=== PATIENT | female | born 1930 | race Caucasian/White ===

== ENCOUNTER 2016-02-17 11:42 | Inpatient (IN) | payer MEDICARE, MEDICAID ==
[2016-02-17] MEDS ORDERED: Albuterol/Ipratropium Neb 3 ML NEB NEB ONE (11:49)
[2016-02-17] MEDS ORDERED: METHYLPREDNISOLONE 125 MG/2 ML VIAL IV ONE (11:49)
[2016-02-17 12:07] LABS: ALLEN'S TEST PASS; TCO2 31.9 MMOL/L (23-27)
[2016-02-17 12:08] LABS: ABG Draw Site Right Radial
--- NOTE | 2016-02-17 12:09 | EDPRACDOC ---
- General Information Information Source: Patient, [employer] Mode Of Arrival: Ambulance - History of Present Illness Symptoms Started: THIS AM HPI: EMS STATES THEY WERE CALLED OUT IN REFERENCE TO SHOB. STATES THE PATIENT WAS PLACED ON O2 BY THE NURSING FACILITY AND SAT WAS 94%. PT PRESENTS WITH MILD SHOB , AND AUDIBLE WHEEZING. PT DENIES ANY PAIN, NAUSEA, CHILLS OR FEVER. Symptoms: Reports: Cough Recently Treated Infections:: Denies: Otitis media, Pneumonia, URI Recent Medications: Reports: None Relevant History Of: Reports: COPD, Heart Failure (CHF) Shortness of Breath: Mild Cough Frequency: Intermittent Cough Description: Reports: Moist, Congested Rhinorrhea: Reports: Clear Ear Symptoms: Reports: None Associated Signs and Symptoms: Denies: Cough, Earache, Fever, Headache, Nasal Symptoms, Sore Throat, Nausea, Vomiting, Diarrhea, Myalgia, Rash, Pain with head movement, AMS, Other <Ashlyn Danielle W - Last Filed: 02/17/16 13:45> <Fiona Shannon - Last Filed: 02/17/16 14:48> - General Information Chief Complaint: Dyspnea/Resp distress Stated Complaint: TROUBLE BREATHING Time Seen by Provider: 02/17/16 11:44 Home Medications: Home Medications Carvedilol [Coreg] 6.25 mg PO BID 04/07/15 Citalopram Hydrobromide [Citalopram HBr] 20 mg PO DAILY 04/07/15 Dextran 70/Hypromellose/Pf [Artificial Tears Drops] 1 drop OU BID 04/07/15 Diltiazem HCl [Diltiazem 24Hr ER] 120 mg PO DAILY 04/07/15 Donepezil HCl 10 mg PO HS 04/07/15 Hydralazine HCl 10 mg PO TID 04/07/15 Isosorbide Dinitrate 10 mg PO TID 04/07/15 Levetiracetam 250 mg PO QHS 04/07/15 Memantine HCl 10 mg PO BID 04/07/15 Multivits, W-Fe,Other Min [Thera-M] 1 tab PO DAILY 04/07/15 Pantoprazole Sodium 40 mg PO DAILY 04/07/15 Spironolactone [Aldactone] 25 mg PO DAILY 04/15/15 Acetaminophen Ex Str Tablet [TYLENOL EXTRA STRENGTH Tablet] 1,000 mg PO Q4H PRN 02/17/16 Benzonatate [Tessalon Perle] 100 mg PO TID PRN 02/17/16 Diphenhydramine [Benadryl] 25 mg PO Q8H PRN 02/17/16 Furosemide [Lasix] 40 mg PO BID 02/17/16 Guaifenesin/D-Methorphan Hb [Cough Syrup Dm] 5 ml PO BID PRN 02/17/16 Lovastatin 10 mg PO HS 02/17/16 Petrolatum,White [Petroleum Jelly] 1 noreen TOP DAILY PRN 02/17/16 Allergies/Adverse Reactions: Allergies Allergy/AdvReac Type Severity Reaction Status Date / Time NSAIDS (Non-Steroidal AdvReac Intermediate See Verified 02/17/16 12:09 Anti-Inflamma Comments ED Past Medical History - History Reviewed Yes Nurses notes reviewed and agree except as marked - Patient Medical History Neurological History: Reports: Seizures, Dementia Cardiac History: Reports: Atrial Fibrillation, Hypertension, Congestive Heart Failure, Hypercholesterolemia, Pacemaker (For sick sinus syndrome.), Syncope. Denies: Coronary Artery Disease, Heart Attack, Cardiac Catheterization, CABG Respiratory History: Reports: COPD, Pneumonia. Denies: Asthma, Bronchitis, Asbestosis, Aspiration Pneumonia, Cough, Chronic Bronchitis, Emphysema, Pulmonary Embolism GI/ History: Reports: Renal Failure, Gastroesophageal Reflux, Diverticulosis. Denies: Renal Disease, Renal (Kidney) Cancer, Kidney (Renal Surgery), Urinary Tract Infection, Kidney Stones, Liver Failure, Ulcer, IBD, Pancreatitis Musculoskeletal History: Denies: Arthritis, Gout, Rheumatoid Arthritis, Osteoarthritis Psychological History: Reports: Anxiety. Denies: Depression, Substance Use Disorder Systemic History: Reports: Anemia. Denies: Diabetes, Hypothyroidism Surgical History: Reports: Other (Patient was unaware of any surgeries.). Denies: CABG, Hysterectomy, Angioplasty, Cardiac Catheterization, Hernia Surgery , Tonsillectomy, Tonsillectomy/Adnoidectomy - Family Medical History Reports: Cancer (MOTHER). Denies: Hypertension, Diabetes, Stroke, Cardiac Disorders - Social Medical History Smoking Status: Former smoker Social History: Denies: Substance Use Disorder <Ashlyn Danielle W - Last Filed: 02/17/16 13:45> EDM Review of Systems - Review of Systems ROS Negative Except as Marked: Yes All systems reviewed and were negative except as marked <Kobe Daniellea W - Last Filed: 02/17/16 13:45> - Physical Exam Constitutional: Alert (PT VERY HARD OF HEARING) Oriented to: Time, Person, Place Last recorded Vital Signs: Oxygen Pulse Oxygen Saturation O2 Device Oxygen Flow Rate Fraction of Inspired Oxygen ( FIO2) - HEENT Head: Normal ( normocephalic) Eye Exam: Normal (PERRL, EOMI, Sclera white) Oropharynx: Membranes Dry Nose: No Symptoms Reported (septum midline) Neck: Normal (FROM, trachea at midline) - Respiratory/Cardiovascular Respiratory: Rales, Rhonchi, Wheezes Cardiovascular: Normal (RRR without murmur, gallop or rub) - GI Auscultation: Normal (NABS) Palpation: Normal (Soft,No rebound or guarding, non distended) Tenderness: Non tender Grijalva's Sign: Negative Rectal Exam: Deferred - Musculoskeletal Back: Normal (Non-Tender) Extremities: Normal (Normal tone, Pulses 2+ No cyanosis or edema, FROM) - Integumentary Skin: Normal, Warm, Dry Lymphatics: Normal (no adenopathy) - Neurologic Memory Impaired: Normal Motor Function: Normal (Normal tone, Pulses 2+ No cyanosis or edema, FROM) Cranial Nerve: Normal (CN II-X11 intact sensation, strength 5/5) Cerebellar: Normal Mood Description: Normal Perception: Normal <ShashiAshlyn W - Last Filed: 02/17/16 13:45> - Physical Exam Last recorded Vital Signs: Last Vital Signs Temp 98.3 F 02/17/16 11:42 Pulse 62 02/17/16 12:40 Resp 20 02/17/16 12:40 BP 115/59 L 02/17/16 12:40 Pulse Ox 95 02/17/16 12:40 Oxygen Pulse Oxygen Saturation 95 O2 Device Nasal Cannula Oxygen Flow Rate 2 Fraction of Inspired Oxygen ( 92 FIO2) <Fiona Shannon - Last Filed: 02/17/16 14:48> - Differential Diagnosis Pneumonia, URI, Viral - Results 02/17/16 12:05 02/17/16 12:05 - EKG EKG #1 EKG Time: 12:06 -: Yes EKG interpreted by me Rate: bpm: 62 [place]: Normal Rhythm: Paced Block: None Hypertrophy: None ST: Normal <Ashlyn Danielle W - Last Filed: 02/17/16 13:45> - Results 02/17/16 12:05 02/17/16 12:05 WBC 10.1 xk/uL (3.8-10.8) 02/17/16 12:05 RBC 3.16 xM/uL (4.20-5.40) L 02/17/16 12:05 Hgb 10.0 g/dL (12.0-16.0) L D 02/17/16 12:05 Hct 29.8 % (36-47) L 02/17/16 12:05 MCV 94 fL (81-99) 02/17/16 12:05 MCH 31.5 pg (27-32) 02/17/16 12:05 MCHC 33.4 g/dl (33-36) 02/17/16 12:05 RDW 14.1 % (11.5-14.5) 02/17/16 12:05 Plt Count 184 xk/uL (130-400) 02/17/16 12:05 MPV 8.3 fL (7.4-10.4) 02/17/16 12:05 Neut % (Auto) 65.5 % (45-76) 02/17/16 12:05 Lymph % (Auto) 15.6 % (17-44) L 02/17/16 12:05 [place] % (Auto) 18.4 % (3-10) H 02/17/16 12:05 Eos % (Auto) 0.2 % (0-5) 02/17/16 12:05 Baso % (Auto) 0.3 % (0-2) 02/17/16 12:05 Absolute Neuts (auto) 6.57 xk/uL (1.7-8.2) 02/17/16 12:05 Absolute Lymphs (auto) 1.52 xk/uL (0.65-4.75) 02/17/16 12:05 Puncture Site Right radial 02/17/16 12:02 pH 7.460 pH UNITS (7.35-7.45) H 02/17/16 12:02 pCO2 43.0 mmHg (35-45) 02/17/16 12:02 pO2 78.0 mmHg (80-100) L 02/17/16 12:02 HCO3 30.6 MMOL/L (22-26) H 02/17/16 12:02 Total CO2 31.9 MMOL/L (23-27) H 02/17/16 12:02 Base Excess 6.0 (+/- 2) H 02/17/16 12:02 FiO2 % 2 lpm nc 02/17/16 12:02 Specimen Drawn By Roude 02/17/16 12:02 Sodium 145 mEq/L (137-146) 02/17/16 12:05 Potassium 3.6 mEq/L (3.5-5.1) 02/17/16 12:05 Chloride 101 mEq/L (98-107) 02/17/16 12:05 Carbon Dioxide 31 mMOL/L (22-33) 02/17/16 12:05 Anion Gap 17 mEq/L (8-16) H 02/17/16 12:05 BUN 40 MG/DL (7-17) H 02/17/16 12:05 Creatinine 1.40 MG/DL (0.52-1.04) H 02/17/16 12:05 Estimated GFR (MDRD) 36 mL/min (>=60) L 02/17/16 12:05 Glucose 98 MG/DL (70-99) 02/17/16 12:05 Calculated Osmolality 289 MOs/Kg (270-290) 02/17/16 12:05 Lactic Acid 1.2 mEq/L (0.7-2.1) 02/17/16 13:46 Calcium 9.5 MG/DL (8.4-10.2) 02/17/16 12:05 Total Bilirubin 0.6 MG/DL (0.2-1.3) 02/17/16 12:05 AST 28 IU/L (14-36) 02/17/16 12:05 ALT 30 IU/L (9-52) 02/17/16 12:05 Alkaline Phosphatase 79 IU/L (55-165) 02/17/16 12:05 Creatine Kinase 112 IU/L (30-134) 02/17/16 12:05 Troponin I 0.02 ng/mL (<.04) 02/17/16 12:05 Qdi-K-Yesehwcbfjc Pept 996 pg/mL (0-1800) 02/17/16 12:05 Total Protein 7.7 G/DL (6.3-8.2) 02/17/16 12:05 Albumin 4.4 G/DL (3.5-5.0) 02/17/16 12:05 Urine Color Yellow 02/17/16 13:15 Urine Clarity Sl hzy 02/17/16 13:15 Urine pH 6.0 (5.0-8.0) 02/17/16 13:15 Ur Specific [place] 1.010 (1.003-1.035) 02/17/16 13:15 Urine Protein Neg (NEG/TRACE) 02/17/16 13:15 Urine Glucose (UA) Neg (NEGATIVE) 02/17/16 13:15 Urine Ketones Neg (NEGATIVE) 02/17/16 13:15 Urine Occult Blood Neg (NEG/TRACE) 02/17/16 13:15 Urine Nitrite Neg (NEGATIVE) 02/17/16 13:15 Urine Bilirubin Neg (NEGATIVE) 02/17/16 13:15 Urine Urobilinogen <2.0 MG/DL (0-1) 02/17/16 13:15 Ur Leukocyte Esterase Neg (NEGATIVE) 02/17/16 13:15 Urine RBC 2-5 (0-5) 02/17/16 13:15 Urine WBC 0-2 (0-5) 02/17/16 13:15 Ur Epithelial Cells Occ 02/17/16 13:15 Hyaline Casts 5-10 (0-2) H 02/17/16 13:15 Urine Mucus Occ (NEG/OCC) 02/17/16 13:15 Lab Results 02/17/16 02/17/16 02/17/16 13:46 13:15 12:05 WBC 10.1 RBC 3.16 L Hgb 10.0 L D Hct 29.8 L MCV 94 MCH 31.5 MCHC 33.4 RDW 14.1 Plt Count 184 MPV 8.3 Neut % (Auto) 65.5 Lymph % (Auto) 15.6 L [place] % (Auto) 18.4 H Eos % (Auto) 0.2 Baso % (Auto) 0.3 Absolute Neuts (auto) 6.57 Absolute Lymphs (auto) 1.52 Puncture Site pH pCO2 pO2 HCO3 Total CO2 Base Excess FiO2 % Specimen Drawn By Sodium Potassium Chloride Carbon Dioxide Anion Gap BUN Creatinine Estimated GFR (MDRD) Glucose Calculated Osmolality Lactic Acid 1.2 Calcium Total Bilirubin AST ALT Alkaline Phosphatase Creatine Kinase Troponin I Sab-P-Dqzogpndqjb Pept Total Protein Albumin Urine Color Yellow Urine Clarity Sl hzy Urine pH 6.0 Ur Specific [place] 1.010 Urine Protein Neg Urine Glucose (UA) Neg Urine Ketones Neg Urine Occult Blood Neg Urine Nitrite Neg Urine Bilirubin Neg Urine Urobilinogen <2.0 Ur Leukocyte Esterase Neg Urine RBC 2-5 Urine WBC 0-2 Ur Epithelial Cells Occ Hyaline Casts 5-10 H Urine Mucus Occ 02/17/16 02/17/16 12:05 12:02 WBC RBC Hgb Hct MCV MCH MCHC RDW Plt Count MPV Neut % (Auto) Lymph % (Auto) [place] % (Auto) Eos % (Auto) Baso % (Auto) Absolute Neuts (auto) Absolute Lymphs (auto) Puncture Site Right radial pH 7.460 H pCO2 43.0 pO2 78.0 L HCO3 30.6 H Total CO2 31.9 H Base Excess 6.0 H FiO2 % 2 lpm nc Specimen Drawn By Roude Sodium 145 Potassium 3.6 Chloride 101 Carbon Dioxide 31 Anion Gap 17 H BUN 40 H Creatinine 1.40 H Estimated GFR (MDRD) 36 L Glucose 98 Calculated Osmolality 289 Lactic Acid Calcium 9.5 Total Bilirubin 0.6 AST 28 ALT 30 Alkaline Phosphatase 79 Creatine Kinase 112 Troponin I 0.02 Zqn-Y-Dzazjvqeoav Pept 996 Total Protein 7.7 Albumin 4.4 Urine Color Urine Clarity Urine pH Ur Specific [place] Urine Protein Urine Glucose (UA) Urine Ketones Urine Occult Blood Urine Nitrite Urine Bilirubin Urine Urobilinogen Ur Leukocyte Esterase Urine RBC Urine WBC Ur Epithelial Cells Hyaline Casts Urine Mucus - Additional Information PT'S O2 SAT 85 ON RA. THE ABG WAS INITIALLY DONE ON OXYGEN, WHICH PT IS NOT NORMALLY ON. <Fiona Shannon - Last Filed: 02/17/16 14:48> Decision Time to Discharge: 13:45 - Departure Disposition: Home Education/Counseling Given To: Patient Education/Counseling Given Regarding: Diagnosis, Treatment, Prognosis, Follow Up <Ashlyn Danielle - Last Filed: 02/17/16 13:45> - Departure Disposition: Admit IP To This Hospital Decision to Admit Time: 14:48 Decision to admit date: 02/17/16 Decision to admit: from ED - Physician Consulted Hospitalist Provider Called: Lacy Irby <Fiona Shannon - Last Filed: 02/17/16 14:48> - Departure Condition: Stable Final Diagnosis: Acute respiratory failure with hypoxia, LLL pneumonia Instructions: Methylprednisolone (By mouth), Levofloxacin (By mouth), Ipratropium/Albuterol (By breathing), Pneumonia (ED) Referrals: Eloina Perla MD [Primary Care Provider] - One Week
[2016-02-17 12:38] LABS: AUTOMATED BASOPHIL 0.3 % (0-2); AUTOMATED EOSINOPHIL 0.2 % (0-5); AUTOMATED LYMPH 15.6 % (17-44); AUTOMATED MONOCYTE 18.4 % (3-10); AUTOMATED NEUTROPHIL 65.5 % (45-76); MPV 8.3 fL (7.4-10.4)
[2016-02-17 12:48] LABS: BLOOD UREA NITROGEN 40 MG/DL (7-17); CALCIUM 9.5 MG/DL (8.4-10.2); CALCULATED OSMOLALITY 289 MOs/Kg (270-290); CHLORIDE 101 mEq/L (98-107); CPK TOTAL WITH POSSIBLE MB 112 IU/L (30-134); GLUCOSE 98 MG/DL (70-99); SODIUM LEVEL 145 mEq/L (137-146); TOTAL PROTEIN 7.7 G/DL (6.3-8.2)
--- NOTE | 2016-02-17 13:38 | DIRPT ---
CLINICAL DATA: Wheezing, short of breath EXAM: CHEST 2 VIEW COMPARISON: 02/12/2016 FINDINGS: LEFT-sided pacemaker overlies stable enlarged cardiac silhouette. There is increased opacity over the LEFT hemidiaphragm. There is an increased density over the lower thoracic spine on lateral projection somewhat linear pattern. Findings suggestive of atelectasis versus infiltrate. No significant pleural fluid. IMPRESSION: New LEFT lower lobe opacity representing atelectasis versus infiltrate. Electronically Signed By: Mesfin Hdz M.D. On: 02/17/2016 13:35
[2016-02-17] MEDS ORDERED: AZITHROMYCIN 250 MG TAB PO ONE (13:44)
[2016-02-17] MEDS ORDERED: LEVOFLOXACIN 750 MG TAB PO ONE (13:45)
[2016-02-17 14:04] LABS: LEUKOCYTES/URINE NEG (NEGATIVE); NITRITE/URINE NEG (NEGATIVE); URINE OCCULT BLOOD NEG (NEG/TRACE); WBC/URINE 0-2 (0-5)
[2016-02-17] MEDS ORDERED: ACETAMINOPHEN 325 MG/TAB TABLET PO PRN (15:05)
[2016-02-17] MEDS ORDERED: TUSSIONEX 5 ML ORAL SYRINGE PO PRN (15:05)
[2016-02-17] MEDS ORDERED: BENZONATATE 100 MG PERLES PO PRN (15:05)
[2016-02-17] MEDS ORDERED: MAGNESIUM HYDROXIDE 30 ML BOTTLE PO PRN (15:05)
[2016-02-17] MEDS ORDERED: SODIUM CHLORIDE 0.9% 3 ML FLUSH FLUSH PRN (15:05)
[2016-02-17] MEDS ORDERED: Aluminum;Magnesium;Simethicone 30 ML UDC PO PRN (15:05)
[2016-02-17] MEDS ORDERED: ONDANSETRON HCL 4 MG/2 ML VIAL IV PRN (15:05)
[2016-02-17] MEDS ORDERED: ALBUTEROL 0.083% 3 ML NEB NEB PRN (15:05)
[2016-02-17 15:07] LABS: ABG Draw Site Right Radial; ALLEN'S TEST PASS; BEb 6.4 (+/- 2); TCO2 32.7 MMOL/L (23-27)
--- NOTE | 2016-02-17 15:11 | HISTPHYS ---
- Chief Complaint [facility]. - History of Present Illness Pt arrived via EMS from [place] [facility] with report of SHOB, decrease sats at 74 % RA and HR-199. EMS reported upon arrival sats-96% O2 at 2lpm and HR 64. Pt with audible wheezing given Albuterol neb x2. No report of fever. EMS STATES THEY WERE CALLED OUT IN REFERENCE TO SHOB. STATES THE PATIENT WAS PLACED ON O2 BY THE NURSING FACILITY AND SAT WAS 94%. PT PRESENTS WITH MILD SHOB , AND AUDIBLE WHEEZING. PT DENIES ANY PAIN, NAUSEA, CHILLS OR FEVER. Symptoms: Reports: Cough Recently Treated Infections:: Denies: Otitis media, Pneumonia, URI Recent Medications: Reports: None Relevant History Of: Reports: COPD, Heart Failure (CHF) Shortness of Breath: Mild Cough Frequency: Intermittent Cough Description: Reports: Moist, Congested Rhinorrhea: Reports: Clear Ear Symptoms: Reports: None Associated Signs and Symptoms: Denies: Cough, Earache, Fever, Headache, Nasal Symptoms, Sore Throat, Nausea, Vomiting, Diarrhea, Myalgia, Rash, Pain with head movement, AMS, Other Patient is extremely poor historian and very hard of hearing. I am unable to obtain any useful history from her. The entirety of the history is obtained from discussion with the ED physician and the medical record. - Medical History Cardiac History: Reports: Atrial Fibrillation, Hypertension, Congestive Heart Failure, Hypercholesterolemia, Pacemaker (For sick sinus syndrome.), Syncope. Denies: Coronary Artery Disease, Heart Attack, Cardiac Catheterization, CABG Respiratory History: Reports: COPD, Pneumonia. Denies: Asthma, Bronchitis, Asbestosis, Aspiration Pneumonia, Cough, Chronic Bronchitis, Emphysema, Pulmonary Embolism GI/ History: Reports: Renal Failure, Gastroesophageal Reflux, Diverticulosis. Denies: Renal Disease, Renal (Kidney) Cancer, Kidney (Renal Surgery), Urinary Tract Infection, Kidney Stones, Liver Failure, Ulcer, IBD, Pancreatitis Musculoskeletal History: Denies: Arthritis, Gout, Rheumatoid Arthritis, Osteoarthritis Systemic History: Reports: Anemia. Denies: Diabetes, Hypothyroidism Neurological History: Reports: Seizures, Dementia Psychological History: Reports: Anxiety. Denies: Depression, Substance Use Disorder - Surgical History Reports: Other (Patient was unaware of any surgeries.). Denies: CABG, Hysterectomy, Angioplasty, Cardiac Catheterization, Hernia Surgery, Tonsillectomy, Tonsillectomy/Adnoidectomy - Medictions/Allergies Allergies NSAIDS (Non-Steroidal Anti-Inflamma Adverse Reaction (Intermediate, Verified 12:09) See Comments Renal failure Current Medication List: Reviewed Home Medications Carvedilol [Coreg] 6.25 mg PO BID 04/07/15 Citalopram Hydrobromide [Citalopram HBr] 20 mg PO DAILY 04/07/15 Dextran 70/Hypromellose/Pf [Artificial Tears Drops] 1 drop OU BID 04/07/15 Diltiazem HCl [Diltiazem 24Hr ER] 120 mg PO DAILY 04/07/15 Donepezil HCl 10 mg PO HS 04/07/15 Hydralazine HCl 10 mg PO TID 04/07/15 Isosorbide Dinitrate 10 mg PO TID 04/07/15 Levetiracetam 250 mg PO QHS 04/07/15 Memantine HCl 10 mg PO BID 04/07/15 Multivits,Th W-Fe,Other Min [Thera-M] 1 tab PO DAILY 04/07/15 Pantoprazole Sodium 40 mg PO DAILY 04/07/15 Spironolactone [Aldactone] 25 mg PO DAILY 04/15/15 Acetaminophen Ex Str Tablet [TYLENOL EXTRA STRENGTH Tablet] 1,000 mg PO Q4H PRN 02/17/16 Benzonatate [Tessalon Perle] 100 mg PO TID PRN 02/17/16 Diphenhydramine [Benadryl] 25 mg PO Q8H PRN 02/17/16 Furosemide [Lasix] 40 mg PO BID 02/17/16 Guaifenesin/D-Methorphan Hb [Cough Syrup Dm] 5 ml PO BID PRN 02/17/16 Lovastatin 10 mg PO HS 02/17/16 Petrolatum,White [Petroleum Jelly] 1 noreen TOP DAILY PRN 02/17/16 - Family History Reports: Cancer (MOTHER). Denies: Hypertension, Diabetes, Stroke, Cardiac Disorders - Social History Travel Outside of [place] in the Last 3 Months?: No Lives: in Assisted Living Smoking Status: Former smoker Social History: Denies: Amphetamine Use, Substance Use Disorder - Review of Systems Yes Review of systems cannot be obtained due to the patient's medical condition - Physical Exam Vital Signs: Initial Vitals Temperature 98.3 F 02/17/16 11:42 Pulse Rate 69 02/17/16 11:42 Respiratory Rate 22 02/17/16 11:42 Blood Pressure 128/60 02/17/16 11:42 Pulse Oxygen Saturation 92 02/17/16 11:42 Constitutional: Alert, Confused, Well nourished. negative: Well appearing Oriented to: Person, Place - HEENT Head: Normal (normocephalic, atraumatic.), Other (No cervical lymphadenopathy. No supraclavicular lymphadenopathy. Neck: No palpable mass, supple , trachea midline.) Eye: Normal (pupils equal, reactive to light, and round; EOMI, Sclera white) Oropharynx: Normal (Pharynx: Moist without exudate,Gums-no swelling, No oropharyngeal lesions or erythema, Mucous membranes are dry.) Nose: No Symptoms Reported (septum midline, Nares patent, without discharge or bleeding.) Respiratory: Diminished, Rhonchi, Wheezes. negative: Rales Cardiovascular: Normal (RRR , Normal S1, S2. No murmurs, rubs, or gallops. PMI non-displaced. Carotids: no carotid bruits. No bradycardia or tachycardia. DP pulses 2+ bilaterally.) - GI Auscultation: Normal (normal active sounds) Palpation: Normal (Soft,non distended,nontender. No hepatosplenomegaly.) Tenderness: Non tender (No rebound or guarding) Grijalva's Sign: Negative - Musculoskeletal Back: Normal (Non-Tender) Extremities: Normal (Normal tone, DP pulses 2+ bilaterally, No cyanosis or edema bilaterally, FROM bilaterally.) - Integumentary Skin: Normal (Clean, dry, and intact. No rashes. No lesions.) Lymphatics: Normal (No cervical lymphadenopathy. No supraclavicular lymphadenopathy.) - Neurologic Memory Impaired: Unable to Test Motor Function: Unable to Test Cranial Nerve: Unable to Test Cerebellar: Unable to Test Mood Description: Normal, Calm - Focused CV Perfusion Exam Vital Signs: Last Vital Signs Temp 98.3 F 02/17/16 11:42 Pulse 85 02/17/16 14:40 Resp 18 02/17/16 14:40 BP 121/59 L 02/17/16 14:40 Pulse Ox 85 L 02/17/16 14:40 - Lab Results Laboratory Results - last 24 hr 02/17/16 02/17/16 02/17/16 12:02 12:05 12:05 WBC 10.1 RBC 3.16 L Hgb 10.0 L D Hct 29.8 L MCV 94 MCH 31.5 MCHC 33.4 RDW 14.1 Plt Count 184 MPV 8.3 Neut % (Auto) 65.5 Lymph % (Auto) 15.6 L [place] % (Auto) 18.4 H Eos % (Auto) 0.2 Baso % (Auto) 0.3 Absolute Neuts (auto) 6.57 Absolute Lymphs (auto) 1.52 Puncture Site Right radial pH 7.460 H pCO2 43.0 pO2 78.0 L HCO3 30.6 H Total CO2 31.9 H Base Excess 6.0 H FiO2 % 2 lpm nc Specimen Drawn By Roude Sodium 145 Potassium 3.6 Chloride 101 Carbon Dioxide 31 Anion Gap 17 H BUN 40 H Creatinine 1.40 H Estimated GFR (MDRD) 36 L Glucose 98 Calculated Osmolality 289 Lactic Acid Calcium 9.5 Total Bilirubin 0.6 AST 28 ALT 30 Alkaline Phosphatase 79 Creatine Kinase 112 Troponin I 0.02 Lrm-M-Wjfclgqyets Pept 996 Total Protein 7.7 Albumin 4.4 Urine Color Urine Clarity Urine pH Ur Specific [place] Urine Protein Urine Glucose (UA) Urine Ketones Urine Occult Blood Urine Nitrite Urine Bilirubin Urine Urobilinogen Ur Leukocyte Esterase Urine RBC Urine WBC Ur Epithelial Cells Hyaline Casts Urine Mucus 02/17/16 02/17/16 02/17/16 13:15 13:46 15:00 WBC RBC Hgb Hct MCV MCH MCHC RDW Plt Count MPV Neut % (Auto) Lymph % (Auto) [place] % (Auto) Eos % (Auto) Baso % (Auto) Absolute Neuts (auto) Absolute Lymphs (auto) Puncture Site Right radial pH 7.450 pCO2 45.0 pO2 52.0 L HCO3 31.3 H Total CO2 32.7 H Base Excess 6.4 H FiO2 % 21% Specimen Drawn By Roude Sodium Potassium Chloride Carbon Dioxide Anion Gap BUN Creatinine Estimated GFR (MDRD) Glucose Calculated Osmolality Lactic Acid 1.2 Calcium Total Bilirubin AST ALT Alkaline Phosphatase Creatine Kinase Troponin I [id number]-B-Xzrwnfdcvfx Pept Total Protein Albumin Urine Color Yellow Urine Clarity Sl hzy Urine pH 6.0 Ur Specific [place] 1.010 Urine Protein Neg Urine Glucose (UA) Neg Urine Ketones Neg Urine Occult Blood Neg Urine Nitrite Neg Urine Bilirubin Neg Urine Urobilinogen <2.0 Ur Leukocyte Esterase Neg Urine RBC 2-5 Urine WBC 0-2 Ur Epithelial Cells Occ Hyaline Casts 5-10 H Urine Mucus Occ - Diagnostic Findings CHEST 2 VIEW COMPARISON: 02/12/2016 FINDINGS: LEFT-sided pacemaker overlies stable enlarged cardiac silhouette. There is increased opacity over the LEFT hemidiaphragm. There is an increased density over the lower thoracic spine on lateral projection somewhat linear pattern. Findings suggestive of atelectasis versus infiltrate. No significant pleural fluid. IMPRESSION: New LEFT lower lobe opacity representing atelectasis versus infiltrate. Electronically Signed By: Mesfin Hdz M.D. On: 02/17/2016 13:35 EKG personally viewed by me reveals an AV dual paced rhythm consistent with dual pacemaker. - Assessment (1) Acute respiratory failure with hypoxia J96.01 - ACUTE RESPIRATORY FAILURE WITH HYPOXIA Acute Present on Admission: Yes Patient does not use any oxygen at the assisted living facility she was found have a PO2 of 74 by the staff oxygen was started. By the time EMS arrived her sats were at 92% level she was given nebulizer treatment due to wheezing and seems to have improved significantly. (2) LLL pneumonia J18.1 - LOBAR PNEUMONIA, UNSPECIFIED ORGANISM Acute Present on Admission: Yes Qualifiers: Pneumonia type: due to unspecified organism Qualified Code(s): J18.1 - Lobar pneumonia, unspecified organism Patient will be treated for community-acquired left lower lobe pneumonia with Rocephin and azithromycin. Will monitor her oxygenation status very closely. (3) Hypoxia R09.02 - HYPOXEMIA Acute Present on Admission: Yes Continue oxygen supplementation. Check ambulating O2 sats prior to discharge. (4) Chronic renal insufficiency, stage III (moderate) N18.3 - CHRONIC KIDNEY DISEASE, STAGE 3 (MODERATE) Chronic Present on Admission: Yes Continue to monitor renal status. Her creatinine of 1.4 is better than her usual baseline of approximately 2.0 (5) Anemia, chronic disease D63.8 - ANEMIA IN OTHER CHRONIC DISEASES CLASSIFIED ELSEWHERE Chronic Patient likely with anemia due to chronic disease as well as due to renal insufficiency. Continue to monitor (6) Pacemaker Z95.0 - PRESENCE OF CARDIAC PACEMAKER Chronic Present on Admission: Yes Continue dual chamber pacing. - Plan Admit treat pneumonia provide oxygen supplementation. Case Care Discussed with: Patient, Nursing Staff Total Time: 55 minutes Critical Care: No Couseling Time (>50% in counseling/coordination): No
[2016-02-17] MEDS: CEFTRIAXONE 1 GM in D5W 100 ML IV SCH (17:21)
[2016-02-17] MEDS: NS/KCl 20 mEq 1,000 ML IV SCH (17:21)
[2016-02-17] MEDS: FUROSEMIDE 40 MG TAB PO SCH (17:28)
[2016-02-17] MEDS: ENOXAPARIN 30 MG/0.3 ML PFS SQ SCH (17:28)
[2016-02-17] MEDS: SODIUM CHLORIDE 0.9% 3 ML FLUSH FLUSH SCH (17:28)
[2016-02-17] MEDS ORDERED: Vaccine Screening Complete SCH (18:00)
[2016-02-17] MEDS: AZITHROMYCIN 500 MG in D5W 250 ML IV SCH (18:42)
[2016-02-17] MEDS ORDERED: LORAZEPAM 2 MG/ML VIAL ONE (19:02)
[2016-02-17] MEDS: ALBUTEROL 0.083% 3 ML NEB NEB SCH (19:11)
[2016-02-17 19:54] LABS: ALLEN'S TEST PASS; BEb -3.5 (+/- 2); TCO2 23.4 MMOL/L (23-27)
[2016-02-17 19:55] LABS: ABG Draw Site Right Radial
--- NOTE | 2016-02-17 19:55 | DIRPT ---
CLINICAL DATA: Short breath. Question aspiration. EXAM: PORTABLE CHEST 1 VIEW COMPARISON: Radiograph 02/17/2016 FINDINGS: LEFT-sided pacemaker overlies stable enlarged cardiac silhouette with ectatic aorta. No effusion, infiltrate, pneumothorax IMPRESSION: Cardiomegaly without acute cardiopulmonary findings. Electronically Signed By: Mesfin Hdz M.D. On: 02/17/2016 19:52
[2016-02-17] MEDS ORDERED: LORAZEPAM 2 MG/ML VIAL IV ONE (20:00)
[2016-02-17] MEDS: LEVETIRACETAM 250 MG TAB PO SCH (20:25)
[2016-02-17] MEDS: ARTIFICIAL TEARS OPH SOLN 15 ML OU SCH (20:25)
[2016-02-17] MEDS: DONEPEZIL HCL 10 MG TAB PO SCH (20:25)
[2016-02-17] MEDS: hydrALAZINE 10 MG TAB PO SCH (20:26)
[2016-02-17] MEDS: CARVEDILOL 6.25 MG TAB PO SCH (20:26)
[2016-02-17] MEDS: ISOSORBIDE DINITRATE 10 MG TAB PO SCH (20:26)
[2016-02-17] MEDS: PRAVASTATIN 20 MG TAB PO SCH (20:26)
[2016-02-17] MEDS: MEMANTINE HCL 10 MG TAB PO SCH (20:27)
[2016-02-17] MEDS ORDERED: LOVASTATIN 10 MG PO SCH (21:00)
[2016-02-17] MEDS ORDERED: DEXTRAN OU SCH (21:00)
[2016-02-17] MEDS ORDERED: HYPROMELLOSE OU SCH (21:00)
[2016-02-17] MEDS ORDERED: [UNRECOGNIZED DRUG - OTHER] OU SCH (21:00)
[2016-02-18] MEDS: ALBUTEROL 0.083% 3 ML NEB NEB SCH ×4 (02:34→20:04)
[2016-02-18] MEDS: NS/KCl 20 mEq 1,000 ML IV SCH (03:17)
[2016-02-18] MEDS: PANTOPRAZOLE 40 MG TAB PO SCH (05:27)
[2016-02-18] MEDS: hydrALAZINE 10 MG TAB PO SCH ×3 (05:28→21:09)
[2016-02-18] MEDS: SODIUM CHLORIDE 0.9% 3 ML FLUSH FLUSH SCH ×2 (05:28→18:22)
[2016-02-18] MEDS: ISOSORBIDE DINITRATE 10 MG TAB PO SCH ×3 (05:28→21:15)
[2016-02-18 07:12] LABS: AUTOMATED BASOPHIL 0.2 % (0-2); AUTOMATED LYMPH 11.7 % (17-44); AUTOMATED MONOCYTE 5.9 % (3-10); AUTOMATED NEUTROPHIL 82.2 % (45-76); MPV 8.3 fL (7.4-10.4)
[2016-02-18 07:27] LABS: BLOOD UREA NITROGEN 37 MG/DL (7-17); CALCIUM 9.1 MG/DL (8.4-10.2); CALCULATED OSMOLALITY 285 MOs/Kg (270-290); CHLORIDE 105 mEq/L (98-107); GLUCOSE 112 MG/DL (70-99); SODIUM LEVEL 143 mEq/L (137-146)
[2016-02-18] MEDS: FUROSEMIDE 40 MG TAB PO SCH ×2 (07:38→15:03)
[2016-02-18] MEDS: ARTIFICIAL TEARS OPH SOLN 15 ML OU SCH ×2 (07:39→21:15)
[2016-02-18] MEDS: SPIRONOLACTONE 25 MG TAB PO SCH (07:39)
[2016-02-18] MEDS: DILTIAZEM HCL 120 MG CAPSULE.CR PO SCH (07:41)
[2016-02-18] MEDS: MEMANTINE HCL 10 MG TAB PO SCH ×2 (07:42→21:18)
[2016-02-18] MEDS: CARVEDILOL 6.25 MG TAB PO SCH ×2 (07:42→21:09)
[2016-02-18] MEDS: VITAMINS, MULTIPLE CAP PO SCH (07:42)
[2016-02-18] MEDS ORDERED: PNEUMOCOCCAL 0.5 ML VIAL IM ONE (08:00)
[2016-02-18] MEDS ORDERED: MULTIVITS TH W FE OTHER MIN PO SCH (09:00)
--- NOTE | 2016-02-18 09:54 | GENMEDPROG ---
Chief Complaint: Patient sleeping soundly. No new complaints. She has audible wheezing. Subjective Note: 85-year-old female admitted to our facility with a lower lobe pneumonia visible on lateral view now with audible wheezing. In the emergency department she was not wheezing and steroids were not administered after admission to avoid any possible complications. Notes Reviewed: Yes Events from last night noted and discussed with Clinical Staff Current Medication List: Reviewed Currently: Reports: Wheezing, BANSAL, SOB, Tobacco Use/Hx. Denies: Nausea and Vomiting, Abdominal Pain, Fever/Chills DVT Prophylaxis: Yes - Physical Examination Vital Signs and I&O: Last Vital Signs Temp 98.9 F 02/18/16 09:34 Pulse 74 02/18/16 09:34 Resp 18 02/18/16 09:34 BP 113/54 L 02/18/16 09:34 Pulse Ox 95 02/18/16 09:34 Oxygen Pulse Oxygen Saturation 95 O2 Device Nasal Cannula Oxygen Flow Rate 2.5 Fraction of Inspired Oxygen ( FIO2) Intake & Output 02/15/16 02/16/16 02/17/16 02/18/16 23:59 23:59 23:59 23:59 Intake Total 120 1756 Balance 120 1756 Patient's weight 63.684 kg 63.458 kg General: Moderate distress, Well nourished, Weakness, Fatigue. negative: Well appearing HEENT: Normal (Normocephalic, atraumatic;EOMI.Sclera white, Nares patent, without discharge or bleeding. No oropharyngeal lesions or erythema. Mucous membranes are dry.) Neck: Non-tender, Full range of motion, Normal Trachea alignment, Normal inspection (No cervical lymphadenopathy. No supraclavicular lymphadenopathy.), No Masses palpable, Supple Lymphatics: Normal (No cervical lymphadenopathy. No supraclavicular lymphadenopathy.) Respiratory: Diminished, Rhonchi, Wheezes. negative: Rales Cardiovascular: Regular rate and rhythm (No bradycardia or tachycardia), Normal S1, No Gallops,Rubs/Murmurs, Normal S2, Good Pedal Pulses (DP pulses 2+ bilaterally) GI: Normal bowel sounds (normal active sounds), Soft (non-distended), Non tender , No hepatospenomegaly, No masses Extremities/Musculoskeletal: Normal pulses (DP pulses 2+ bilaterally) Skin: Warm,Dry and Intact, No rashes, No significant lesion Neurological: Strength at 5/5 X4 ext (Motor 5/5 throughout.), Normal tone, Cranial nerves 3-12 NL ( 2-12 grossly intact.), Other (Very hard of hearing) Psych/Mental Status: Appropriate, Normal Affect Lab/DI/Studies Reviewed: PORTABLE CHEST 1 VIEW COMPARISON: Radiograph 02/17/2016 FINDINGS: LEFT-sided pacemaker overlies stable enlarged cardiac silhouette with ectatic aorta. No effusion, infiltrate, pneumothorax IMPRESSION: Cardiomegaly without acute cardiopulmonary findings. Electronically Signed By: Mesfin Hdz M.D. On: 02/17/2016 19:52 Laboratory Results - last 24 hr 02/17/16 02/17/16 02/17/16 12:02 12:05 12:05 WBC 10.1 RBC 3.16 L Hgb 10.0 L D Hct 29.8 L MCV 94 MCH 31.5 MCHC 33.4 RDW 14.1 Plt Count 184 MPV 8.3 Neut % (Auto) 65.5 Lymph % (Auto) 15.6 L [place] % (Auto) 18.4 H Eos % (Auto) 0.2 Baso % (Auto) 0.3 Absolute Neuts (auto) 6.57 Absolute Lymphs (auto) 1.52 Puncture Site Right radial pH 7.460 H pCO2 43.0 pO2 78.0 L HCO3 30.6 H Total CO2 31.9 H Base Excess 6.0 H FiO2 % 2 lpm nc Specimen Drawn By [facility] Sodium 145 Potassium 3.6 Chloride 101 Carbon Dioxide 31 Anion Gap 17 H BUN 40 H Creatinine 1.40 H Estimated GFR (MDRD) 36 L Glucose 98 Calculated Osmolality 289 Lactic Acid Calcium 9.5 Total Bilirubin 0.6 AST 28 ALT 30 Alkaline Phosphatase 79 Creatine Kinase 112 Troponin I 0.02 Ucg-B-Qgissnbnhru Pept 996 Total Protein 7.7 Albumin 4.4 TSH Urine Color Urine Clarity Urine pH Ur Specific [place] Urine Protein Urine Glucose (UA) Urine Ketones Urine Occult Blood Urine Nitrite Urine Bilirubin Urine Urobilinogen Ur Leukocyte Esterase Urine RBC Urine WBC Ur Epithelial Cells Hyaline Casts Urine Mucus 02/17/16 02/17/16 02/17/16 12:05 13:15 13:46 WBC RBC Hgb Hct MCV MCH MCHC RDW Plt Count MPV Neut % (Auto) Lymph % (Auto) [place] % (Auto) Eos % (Auto) Baso % (Auto) Absolute Neuts (auto) Absolute Lymphs (auto) Puncture Site pH pCO2 pO2 HCO3 Total CO2 Base Excess FiO2 % Specimen Drawn By Sodium Potassium Chloride Carbon Dioxide Anion Gap BUN Creatinine Estimated GFR (MDRD) Glucose Calculated Osmolality Lactic Acid 1.2 Calcium Total Bilirubin AST ALT Alkaline Phosphatase Creatine Kinase Troponin I Gke-[id number]-Fqczstjqcdk Pept Total Protein Albumin TSH 38.00 H Urine Color Yellow Urine Clarity Sl hzy Urine pH 6.0 Ur Specific [place] 1.010 Urine Protein Neg Urine Glucose (UA) Neg Urine Ketones Neg Urine Occult Blood Neg Urine Nitrite Neg Urine Bilirubin Neg Urine Urobilinogen <2.0 Ur Leukocyte Esterase Neg Urine RBC 2-5 Urine WBC 0-2 Ur Epithelial Cells Occ Hyaline Casts 5-10 H Urine Mucus Occ 02/17/16 02/17/16 02/17/16 15:00 15:04 19:50 WBC RBC Hgb Hct MCV MCH MCHC RDW Plt Count MPV Neut % (Auto) Lymph % (Auto) [place] % (Auto) Eos % (Auto) Baso % (Auto) Absolute Neuts (auto) Absolute Lymphs (auto) Puncture Site Right radial Right radial pH 7.450 7.340 L pCO2 45.0 41.0 pO2 52.0 L 68.0 L HCO3 31.3 H 22.1 Total CO2 32.7 H 23.4 Base Excess 6.4 H -3.5 L FiO2 % 21% 2lnc Specimen Drawn By [facility] Sodium Potassium Chloride Carbon Dioxide Anion Gap BUN Creatinine Estimated GFR (MDRD) Glucose Calculated Osmolality Lactic Acid Calcium Total Bilirubin AST ALT Alkaline Phosphatase Creatine Kinase Troponin I 0.02 Szm-O-Hpyipeaddek Pept Total Protein Albumin TSH Urine Color Urine Clarity Urine pH Ur Specific [place] Urine Protein Urine Glucose (UA) Urine Ketones Urine Occult Blood Urine Nitrite Urine Bilirubin Urine Urobilinogen Ur Leukocyte Esterase Urine RBC Urine WBC Ur Epithelial Cells Hyaline Casts Urine Mucus 02/18/16 02/18/16 06:30 06:30 WBC 9.6 RBC 2.98 L Hgb 9.5 L Hct 28.2 L MCV 95 MCH 32.0 MCHC 33.8 RDW 13.9 Plt Count 177 MPV 8.3 Neut % (Auto) 82.2 H Lymph % (Auto) 11.7 L [place] % (Auto) 5.9 Eos % (Auto) 0.0 Baso % (Auto) 0.2 Absolute Neuts (auto) 7.87 Absolute Lymphs (auto) 1.06 Puncture Site pH pCO2 pO2 HCO3 Total CO2 Base Excess FiO2 % Specimen Drawn By Sodium 143 Potassium 4.4 Chloride 105 Carbon Dioxide 25 Anion Gap 17 H BUN 37 H Creatinine 1.30 H Estimated GFR (MDRD) 39 L Glucose 112 H Calculated Osmolality 285 Lactic Acid Calcium 9.1 Total Bilirubin AST ALT Alkaline Phosphatase Creatine Kinase Troponin I Nna-U-Asfgtfldjls Pept Total Protein Albumin TSH Urine Color Urine Clarity Urine pH Ur Specific [place] Urine Protein Urine Glucose (UA) Urine Ketones Urine Occult Blood Urine Nitrite Urine Bilirubin Urine Urobilinogen Ur Leukocyte Esterase Urine RBC Urine WBC Ur Epithelial Cells Hyaline Casts Urine Mucus - Assessment (1) Acute respiratory failure with hypoxia Acute J96.01 - ACUTE RESPIRATORY FAILURE WITH HYPOXIA Comment/Plan: 2015: Patient still requiring significant oxygen and now is wheezing profusely. Continue O2 support. Admission: Patient does not use any oxygen at the assisted living facility she was found have a PO2 of 74 by the staff oxygen was started. By the time EMS arrived her sats were at 92% level she was given nebulizer treatment due to wheezing and seems to have improved significantly. (2) LLL pneumonia Acute J18.1 - LOBAR PNEUMONIA, UNSPECIFIED ORGANISM Qualifiers: Pneumonia type: due to unspecified organism Qualified Code(s): J18.1 - Lobar pneumonia, unspecified organism Comment/Plan: Patient will be treated for community-acquired left lower lobe pneumonia with Rocephin and azithromycin. Will monitor her oxygenation status very closely. (3) Bronchospasm Acute J98.01 - ACUTE BRONCHOSPASM Comment/Plan: Will add steroids to treatment and monitor results closely. (4) Hypoxia Acute R09.02 - HYPOXEMIA Comment/Plan: Continue oxygen supplementation. Check ambulating O2 sats prior to discharge. (5) Chronic renal insufficiency, stage III (moderate) Chronic N18.3 - CHRONIC KIDNEY DISEASE, STAGE 3 (MODERATE) Comment/Plan: : Creatinine down to 1.3. Admission: Continue to monitor renal status. Her creatinine of 1.4 is better than her usual baseline of approximately 2.0 (6) Anemia, chronic disease Chronic D63.8 - ANEMIA IN OTHER CHRONIC DISEASES CLASSIFIED ELSEWHERE Comment/Plan: Patient likely with anemia due to chronic disease as well as due to renal insufficiency. Continue to monitor (7) Pacemaker Chronic Z95.0 - PRESENCE OF CARDIAC PACEMAKER Comment/Plan: Continue dual chamber pacing. - Plan Continue to treat pneumonia. Continue oxygen supplementation. Add steroids. Disposition Plan: Hopefully home once improved. Case Care Discussed with: Patient, Nursing Staff Education/Counseling Given To: Patient Education/Counseling Given Regarding: Diagnosis, Treatment, Prognosis Total Time: 45 minutes Critical Care: No Couseling Time (>50% in counseling/coordination): No
[2016-02-18] MEDS: METHYLPREDNISOLONE 125 MG/2 ML VIAL IV SCH ×3 (10:42→21:23)
[2016-02-18] MEDS ORDERED: NS 500 ML IV ONE (14:55)
[2016-02-18] MEDS: CEFTRIAXONE 1 GM in D5W 100 ML IV SCH (15:02)
[2016-02-18] MEDS: AZITHROMYCIN 500 MG in D5W 250 ML IV SCH (18:21)
[2016-02-18] MEDS: ENOXAPARIN 30 MG/0.3 ML PFS SQ SCH (18:22)
[2016-02-18] MEDS: DONEPEZIL HCL 10 MG TAB PO SCH (21:15)
[2016-02-18] MEDS: LEVETIRACETAM 250 MG TAB PO SCH (21:17)
[2016-02-18] MEDS: PRAVASTATIN 20 MG TAB PO SCH (21:18)
[2016-02-19] MEDS: ALBUTEROL 0.083% 3 ML NEB NEB SCH ×4 (01:20→19:57)
[2016-02-19] MEDS: METHYLPREDNISOLONE 125 MG/2 ML VIAL IV SCH ×4 (04:56→22:51)
[2016-02-19] MEDS: SODIUM CHLORIDE 0.9% 3 ML FLUSH FLUSH SCH ×3 (06:32→17:05)
[2016-02-19] MEDS: ISOSORBIDE DINITRATE 10 MG TAB PO SCH ×3 (06:33→22:57)
[2016-02-19] MEDS: hydrALAZINE 10 MG TAB PO SCH ×3 (06:33→22:56)
[2016-02-19] MEDS: PANTOPRAZOLE 40 MG TAB PO SCH (06:33)
[2016-02-19] MEDS: FUROSEMIDE 40 MG TAB PO SCH ×2 (07:56→17:04)
[2016-02-19] MEDS: DILTIAZEM HCL 120 MG CAPSULE.CR PO SCH (08:00)
[2016-02-19] MEDS: CARVEDILOL 6.25 MG TAB PO SCH ×2 (08:00→22:58)
[2016-02-19] MEDS: SPIRONOLACTONE 25 MG TAB PO SCH (08:00)
[2016-02-19] MEDS: ARTIFICIAL TEARS OPH SOLN 15 ML OU SCH ×2 (08:00→22:55)
[2016-02-19] MEDS: MEMANTINE HCL 10 MG TAB PO SCH ×2 (08:00→22:57)
--- NOTE | 2016-02-19 10:47 | GENMEDPROG ---
Chief Complaint: Patient sleeping but awakens easily. Subjective Note: 85-year-old female admitted to our facility pneumonia. She continues to have significant wheezing that is audible. Notes Reviewed: Yes Events from last night noted and discussed with Clinical Staff Current Medication List: Reviewed Currently: Reports: Wheezing, BANSAL, SOB, Tobacco Use/Hx. Denies: Nausea and Vomiting, Abdominal Pain, Fever/Chills DVT Prophylaxis: Yes - Physical Examination Vital Signs and I&O: Last Vital Signs Temp 99 F 02/19/16 05:56 Pulse 64 02/19/16 07:51 Resp 22 02/19/16 07:51 BP 130/62 02/19/16 07:51 Pulse Ox 93 02/19/16 08:13 Oxygen Pulse Oxygen Saturation [ 95 Seated] Pulse Oxygen Saturation 93 O2 Device Nasal Cannula Oxygen Flow Rate 2 Fraction of Inspired Oxygen ( FIO2) Intake & Output 02/16/16 02/17/16 02/18/16 02/19/16 23:59 23:59 23:59 23:59 Intake Total 120 3217 444 Output Total 200 350 Balance 120 3017 94 Patient's weight 63.684 kg 63.458 kg 64.013 kg General: Moderate distress, Well nourished, Weakness, Fatigue. negative: Well appearing HEENT: Normal (Normocephalic, atraumatic;EOMI.Sclera white, Nares patent, without discharge or bleeding. No oropharyngeal lesions or erythema. Mucous membranes are dry.) Neck: Non-tender, Full range of motion, Normal Trachea alignment, Normal inspection (No cervical lymphadenopathy. No supraclavicular lymphadenopathy.), No Masses palpable, Supple Lymphatics: Normal (No cervical lymphadenopathy. No supraclavicular lymphadenopathy.) Respiratory: Diminished, Rhonchi, Wheezes. negative: Rales Cardiovascular: Regular rate and rhythm (No bradycardia or tachycardia), Normal S1, No Gallops,Rubs/Murmurs, Normal S2, Good Pedal Pulses (DP pulses 2+ bilaterally) GI: Normal bowel sounds (normal active sounds), Soft (non-distended), Non tender , No hepatospenomegaly, No masses Extremities/Musculoskeletal: Normal pulses (DP pulses 2+ bilaterally) Skin: Warm,Dry and Intact, No rashes, No significant lesion Neurological: Strength at 5/5 X4 ext (Motor 5/5 throughout.), Normal tone, Cranial nerves 3-12 NL ( 2-12 grossly intact.), Other (Very hard of hearing) Psych/Mental Status: Appropriate, Normal Affect - Assessment (1) Acute respiratory failure with hypoxia Acute J96.01 - ACUTE RESPIRATORY FAILURE WITH HYPOXIA Comment/Plan: 2015: Patient O2 sats are barely 93% 2 L of continue oxygen support. 02/18/2016: Patient still requiring significant oxygen and now is wheezing profusely. Continue O2 support. Admission: Patient does not use any oxygen at the assisted living facility she was found have a PO2 of 74 by the staff oxygen was started. By the time EMS arrived her sats were at 92% level she was given nebulizer treatment due to wheezing and seems to have improved significantly. (2) LLL pneumonia Acute J18.1 - LOBAR PNEUMONIA, UNSPECIFIED ORGANISM Qualifiers: Pneumonia type: due to unspecified organism Qualified Code(s): J18.1 - Lobar pneumonia, unspecified organism Comment/Plan: 02/19/2016 continue treatment with Rocephin and azithromycin. Admission: Patient will be treated for community-acquired left lower lobe pneumonia with Rocephin and azithromycin. Will monitor her oxygenation status very closely. (3) Bronchospasm Acute J98.01 - ACUTE BRONCHOSPASM Comment/Plan: Bronchospasm improved after steroid treatment (4) Hypoxia Acute R09.02 - HYPOXEMIA Comment/Plan: Continue oxygen supplementation. Check ambulating O2 sats prior to discharge. (5) Chronic renal insufficiency, stage III (moderate) Chronic N18.3 - CHRONIC KIDNEY DISEASE, STAGE 3 (MODERATE) Comment/Plan: : Creatinine down to 1.3. Admission: Continue to monitor renal status. Her creatinine of 1.4 is better than her usual baseline of approximately 2.0 (6) Anemia, chronic disease Chronic D63.8 - ANEMIA IN OTHER CHRONIC DISEASES CLASSIFIED ELSEWHERE Comment/Plan: Patient likely with anemia due to chronic disease as well as due to renal insufficiency. Continue to monitor (7) Pacemaker Chronic Z95.0 - PRESENCE OF CARDIAC PACEMAKER Comment/Plan: Continue dual chamber pacing. - Plan Continue to treat pneumonia. Continue oxygen supplementation and steroids. Disposition Plan: Hopefully home once improved. Case Care Discussed with: Patient, Nursing Staff Education/Counseling Given To: Patient Education/Counseling Given Regarding: Diagnosis, Treatment, Prognosis, Disposition Plan Total Time: 45 minutes Critical Care: No Couseling Time (>50% in counseling/coordination): No
[2016-02-19] MEDS: VITAMINS, MULTIPLE CAP PO SCH (13:07)
[2016-02-19] MEDS: CEFTRIAXONE 1 GM in D5W 100 ML IV SCH (17:03)
[2016-02-19] MEDS: ENOXAPARIN 30 MG/0.3 ML PFS SQ SCH (17:04)
[2016-02-19] MEDS: AZITHROMYCIN 500 MG in D5W 250 ML IV SCH (18:26)
[2016-02-19] MEDS: PRAVASTATIN 20 MG TAB PO SCH (22:56)
[2016-02-19] MEDS: LEVETIRACETAM 250 MG TAB PO SCH (22:57)
[2016-02-19] MEDS: DONEPEZIL HCL 10 MG TAB PO SCH (22:57)
[2016-02-20] MEDS: ALBUTEROL 0.083% 3 ML NEB NEB SCH ×4 (02:23→20:18)
[2016-02-20] MEDS: METHYLPREDNISOLONE 125 MG/2 ML VIAL IV SCH ×4 (05:42→21:41)
[2016-02-20] MEDS: hydrALAZINE 10 MG TAB PO SCH ×3 (05:42→21:39)
[2016-02-20] MEDS: PANTOPRAZOLE 40 MG TAB PO SCH (05:43)
[2016-02-20] MEDS: ISOSORBIDE DINITRATE 10 MG TAB PO SCH ×3 (05:43→21:39)
[2016-02-20] MEDS: ARTIFICIAL TEARS OPH SOLN 15 ML OU SCH ×2 (08:19→21:44)
[2016-02-20] MEDS: FUROSEMIDE 40 MG TAB PO SCH ×2 (08:24→16:23)
[2016-02-20] MEDS: SPIRONOLACTONE 25 MG TAB PO SCH (08:25)
[2016-02-20] MEDS: MEMANTINE HCL 10 MG TAB PO SCH ×2 (08:25→21:40)
[2016-02-20] MEDS: CARVEDILOL 6.25 MG TAB PO SCH ×2 (08:25→21:39)
[2016-02-20] MEDS: DILTIAZEM HCL 120 MG CAPSULE.CR PO SCH (08:26)
[2016-02-20] MEDS: LEVOTHYROXINE 50 MCG (0.05 MG) TAB PO SCH (10:19)
[2016-02-20] MEDS: VITAMINS, MULTIPLE CAP PO SCH (12:19)
[2016-02-20] MEDS: GUAIFENESIN 600 MG LA TAB PO SCH ×2 (12:19→21:40)
[2016-02-20] MEDS: CEFTRIAXONE 1 GM in D5W 100 ML IV SCH (16:26)
[2016-02-20] MEDS: AZITHROMYCIN 500 MG in D5W 250 ML IV SCH (17:35)
[2016-02-20] MEDS: ENOXAPARIN 30 MG/0.3 ML PFS SQ SCH (17:36)
--- NOTE | 2016-02-20 17:50 | GENMEDPROG ---
Currently: Reports: Wheezing, BANSAL, SOB, Tobacco Use/Hx. Denies: Nausea and Vomiting, Abdominal Pain, Fever/Chills DVT Prophylaxis: Yes - Physical Examination Vital Signs and I&O: Last Vital Signs Temp 97.8 F 02/20/16 04:25 Pulse 60 02/20/16 14:27 Resp 18 02/20/16 04:25 BP 115/64 02/20/16 14:27 Pulse Ox 95 02/20/16 10:37 Oxygen Pulse Oxygen Saturation [ 95 Seated] Pulse Oxygen Saturation 95 O2 Device Nasal Cannula Oxygen Flow Rate 2 Fraction of Inspired Oxygen ( FIO2) Intake & Output 02/17/16 02/18/16 02/19/16 02/20/16 23:59 23:59 23:59 23:59 Intake Total 120 3217 1404 1204 Output Total 200 1350 370 Balance 120 3017 54 834 Patient's weight 63.684 kg 63.458 kg 64.013 kg 63.276 kg Selected Entries 02/20/16 02/20/16 10:35 15:14 Pulse Oxygen 86 L Saturation Vital Signs After Comment ambulating and ADLs patient seated in recliner. oxygen 89% on 2L. General: Moderate distress, Well nourished, Weakness, Fatigue. negative: Well appearing HEENT: Normal (Normocephalic, atraumatic;EOMI.Sclera white, Nares patent, without discharge or bleeding. No oropharyngeal lesions or erythema. Mucous membranes are dry.) Neck: Non-tender, Full range of motion, Normal Trachea alignment, Normal inspection (No cervical lymphadenopathy. No supraclavicular lymphadenopathy.), No Masses palpable, Supple Lymphatics: Normal (No cervical lymphadenopathy. No supraclavicular lymphadenopathy.) Respiratory: Diminished, Rhonchi, Wheezes. negative: Rales Cardiovascular: Regular rate and rhythm (No bradycardia or tachycardia), Normal S1, No Gallops,Rubs/Murmurs, Normal S2, Good Pedal Pulses (DP pulses 2+ bilaterally) GI: Normal bowel sounds (normal active sounds), Soft (non-distended), Non tender , No hepatospenomegaly, No masses Extremities/Musculoskeletal: Normal pulses (DP pulses 2+ bilaterally) Skin: Warm,Dry and Intact, No rashes, No significant lesion Neurological: Strength at 5/5 X4 ext (Motor 5/5 throughout.), Normal tone, Cranial nerves 3-12 NL ( 2-12 grossly intact.), Other (Very hard of hearing) Psych/Mental Status: Appropriate, Normal Affect - Assessment (1) Acute respiratory failure with hypoxia Acute J96.01 - ACUTE RESPIRATORY FAILURE WITH HYPOXIA Comment/Plan: 2015: Patient O2 sats are barely 93% 2 L of continue oxygen support. 02/18/2016: Patient still requiring significant oxygen and now is wheezing profusely. Continue O2 support. Admission: Patient does not use any oxygen at the assisted living facility she was found have a PO2 of 74 by the staff oxygen was started. By the time EMS arrived her sats were at 92% level she was given nebulizer treatment due to wheezing and seems to have improved significantly. (2) LLL pneumonia Acute J18.1 - LOBAR PNEUMONIA, UNSPECIFIED ORGANISM Qualifiers: Pneumonia type: due to unspecified organism Qualified Code(s): J18.1 - Lobar pneumonia, unspecified organism Comment/Plan: 02/19/2016 continue treatment with Rocephin and azithromycin. Admission: Patient will be treated for community-acquired left lower lobe pneumonia with Rocephin and azithromycin. Will monitor her oxygenation status very closely. (3) Bronchospasm Acute J98.01 - ACUTE BRONCHOSPASM Comment/Plan: Bronchospasm improved after steroid treatment (4) Hypoxia Acute R09.02 - HYPOXEMIA Comment/Plan: Continue oxygen supplementation. Check ambulating O2 sats prior to discharge. (5) Chronic renal insufficiency, stage III (moderate) Chronic N18.3 - CHRONIC KIDNEY DISEASE, STAGE 3 (MODERATE) Comment/Plan: : Creatinine down to 1.3. Admission: Continue to monitor renal status. Her creatinine of 1.4 is better than her usual baseline of approximately 2.0 (6) Anemia, chronic disease Chronic D63.8 - ANEMIA IN OTHER CHRONIC DISEASES CLASSIFIED ELSEWHERE Comment/Plan: Patient likely with anemia due to chronic disease as well as due to renal insufficiency. Continue to monitor (7) Pacemaker Chronic Z95.0 - PRESENCE OF CARDIAC PACEMAKER Comment/Plan: Continue dual chamber pacing.
[2016-02-20] MEDS: SODIUM CHLORIDE 0.9% 3 ML FLUSH FLUSH SCH (18:39)
[2016-02-20] MEDS: DONEPEZIL HCL 10 MG TAB PO SCH (21:39)
[2016-02-20] MEDS: LEVETIRACETAM 250 MG TAB PO SCH (21:39)
[2016-02-20] MEDS: PRAVASTATIN 20 MG TAB PO SCH (21:40)
[2016-02-21] MEDS: ALBUTEROL 0.083% 3 ML NEB NEB SCH ×4 (02:07→20:10)
[2016-02-21] MEDS: METHYLPREDNISOLONE 125 MG/2 ML VIAL IV SCH ×4 (04:52→21:40)
[2016-02-21] MEDS: PANTOPRAZOLE 40 MG TAB PO SCH (05:44)
[2016-02-21] MEDS: ISOSORBIDE DINITRATE 10 MG TAB PO SCH ×3 (05:44→21:37)
[2016-02-21] MEDS: SODIUM CHLORIDE 0.9% 3 ML FLUSH FLUSH SCH ×2 (05:44→17:10)
[2016-02-21] MEDS: hydrALAZINE 10 MG TAB PO SCH ×3 (05:44→21:33)
[2016-02-21 06:00] LABS: ALLEN'S TEST PASS; BEb 6.1 (+/- 2); TCO2 32.6 MMOL/L (23-27)
[2016-02-21 06:03] LABS: ABG Draw Site Right Radial
[2016-02-21 07:26] LABS: MPV 8.5 fL (7.4-10.4)
[2016-02-21 07:42] LABS: BLOOD UREA NITROGEN 43 MG/DL (7-17); CALCULATED OSMOLALITY 283 MOs/Kg (270-290); CHLORIDE 101 mEq/L (98-107); GLUCOSE 124 MG/DL (70-99); SODIUM LEVEL 141 mEq/L (137-146)
[2016-02-21 08:35] LABS: TOTAL CELL COUNT 100
[2016-02-21 08:41] LABS: SEG NEUTROPHIL 85 % (45-76)
--- NOTE | 2016-02-21 08:58 | DIRPT ---
CLINICAL DATA: Shortness of breath and wheezing. Right chest pain. EXAM: CHEST 2 VIEW COMPARISON: 02/17/2016. FINDINGS: Poor inspiration. Stable enlarged cardiac silhouette and left subclavian pacemaker leads. The pulmonary vasculature and interstitial markings remain mildly prominent. Diffuse osteopenia. IMPRESSION: Stable cardiomegaly, pulmonary vascular congestion and mild chronic interstitial lung disease. Electronically Signed By: Umang Hinkle M.D. On: 02/21/2016 08:56
[2016-02-21] MEDS: FUROSEMIDE 40 MG TAB PO SCH ×2 (10:08→14:35)
[2016-02-21] MEDS: ARTIFICIAL TEARS OPH SOLN 15 ML OU SCH ×2 (10:08→21:32)
[2016-02-21] MEDS: GUAIFENESIN 600 MG LA TAB PO SCH ×2 (10:09→21:37)
[2016-02-21] MEDS: DILTIAZEM HCL 120 MG CAPSULE.CR PO SCH (10:09)
[2016-02-21] MEDS: CARVEDILOL 6.25 MG TAB PO SCH ×2 (10:09→21:36)
[2016-02-21] MEDS: MEMANTINE HCL 10 MG TAB PO SCH ×2 (10:10→21:38)
[2016-02-21] MEDS: LEVOTHYROXINE 50 MCG (0.05 MG) TAB PO SCH (10:10)
[2016-02-21] MEDS: SPIRONOLACTONE 25 MG TAB PO SCH (10:11)
[2016-02-21] MEDS: VITAMINS, MULTIPLE CAP PO SCH (14:33)
[2016-02-21] MEDS: CEFTRIAXONE 1 GM in D5W 100 ML IV SCH (14:35)
[2016-02-21] MEDS: AZITHROMYCIN 500 MG in D5W 250 ML IV SCH (17:09)
[2016-02-21] MEDS: ENOXAPARIN 30 MG/0.3 ML PFS SQ SCH (17:10)
--- NOTE | 2016-02-21 18:19 | GENMEDPROG ---
Currently: Reports: Wheezing, BANSAL, SOB, Tobacco Use/Hx. Denies: Nausea and Vomiting, Abdominal Pain, Fever/Chills DVT Prophylaxis: Yes - Physical Examination Vital Signs and I&O: Last Vital Signs Temp 98.1 F 02/21/16 05:50 Pulse 64 02/21/16 05:41 Resp 20 02/21/16 05:50 BP 130/60 02/21/16 05:41 Pulse Ox 96 02/21/16 07:53 Oxygen Pulse Oxygen Saturation [ 95 Seated] Pulse Oxygen Saturation 96 O2 Device Nasal Cannula Oxygen Flow Rate 3 Fraction of Inspired Oxygen ( FIO2) Intake & Output 02/18/16 02/19/16 02/20/16 02/21/16 23:59 23:59 23:59 23:59 Intake Total 3217 1404 2084 1369 Output Total 200 1350 895 200 Balance 3017 54 1189 1169 Patient's weight 139 lb 14.4 oz 141 lb 2 oz 139 lb 8 oz 140 lb General: Moderate distress, Well nourished, Weakness, Fatigue. negative: Well appearing HEENT: Normal (Normocephalic, atraumatic;EOMI.Sclera white, Nares patent, without discharge or bleeding. No oropharyngeal lesions or erythema. Mucous membranes are dry.) Neck: Non-tender, Full range of motion, Normal Trachea alignment, Normal inspection (No cervical lymphadenopathy. No supraclavicular lymphadenopathy.), No Masses palpable, Supple Lymphatics: Normal (No cervical lymphadenopathy. No supraclavicular lymphadenopathy.) Respiratory: Diminished, Rhonchi, Wheezes. negative: Rales Cardiovascular: Regular rate and rhythm (No bradycardia or tachycardia), Normal S1, No Gallops,Rubs/Murmurs, Normal S2, Good Pedal Pulses (DP pulses 2+ bilaterally) GI: Normal bowel sounds (normal active sounds), Soft (non-distended), Non tender , No hepatospenomegaly, No masses Extremities/Musculoskeletal: Normal pulses (DP pulses 2+ bilaterally) Skin: Warm,Dry and Intact, No rashes, No significant lesion Neurological: Strength at 5/5 X4 ext (Motor 5/5 throughout.), Normal tone, Cranial nerves 3-12 NL ( 2-12 grossly intact.), Other (Very hard of hearing) Psych/Mental Status: Appropriate, Normal Affect
[2016-02-21] MEDS: DONEPEZIL HCL 10 MG TAB PO SCH (21:31)
[2016-02-21] MEDS: LEVETIRACETAM 250 MG TAB PO SCH (21:37)
[2016-02-21] MEDS: PRAVASTATIN 20 MG TAB PO SCH (21:38)
[2016-02-22] MEDS: ALBUTEROL 0.083% 3 ML NEB NEB SCH ×4 (01:58→19:51)
[2016-02-22] MEDS: METHYLPREDNISOLONE 125 MG/2 ML VIAL IV SCH ×4 (04:47→21:02)
[2016-02-22] MEDS: SODIUM CHLORIDE 0.9% 3 ML FLUSH FLUSH SCH ×2 (04:47→17:20)
[2016-02-22] MEDS: hydrALAZINE 10 MG TAB PO SCH ×3 (05:26→20:58)
[2016-02-22] MEDS: ISOSORBIDE DINITRATE 10 MG TAB PO SCH ×3 (05:27→21:00)
[2016-02-22] MEDS: PANTOPRAZOLE 40 MG TAB PO SCH (05:28)
[2016-02-22 05:43] VITALS: BMI 25.8
[2016-02-22] MEDS: FUROSEMIDE 40 MG TAB PO SCH ×2 (07:37→14:50)
[2016-02-22] MEDS: CARVEDILOL 6.25 MG TAB PO SCH ×2 (09:31→21:00)
[2016-02-22] MEDS: ARTIFICIAL TEARS OPH SOLN 15 ML OU SCH ×2 (09:31→20:59)
[2016-02-22] MEDS: GUAIFENESIN 600 MG LA TAB PO SCH ×2 (09:32→21:01)
[2016-02-22] MEDS: MEMANTINE HCL 10 MG TAB PO SCH ×2 (09:32→21:01)
[2016-02-22] MEDS: LEVOTHYROXINE 50 MCG (0.05 MG) TAB PO SCH (09:33)
[2016-02-22] MEDS: DILTIAZEM HCL 120 MG CAPSULE.CR PO SCH (09:33)
[2016-02-22] MEDS: SPIRONOLACTONE 25 MG TAB PO SCH (09:33)
[2016-02-22] MEDS: VITAMINS, MULTIPLE CAP PO SCH (09:34)
[2016-02-22] MEDS: CEFTRIAXONE 1 GM in D5W 100 ML IV SCH (14:50)
--- NOTE | 2016-02-22 16:38 | PCM.DCS92 ---
- Final/Secondary Discharge Diagnosis (1) Acute respiratory failure with hypoxia Acute J96.01 - ACUTE RESPIRATORY FAILURE WITH HYPOXIA Present on Admission: Yes Comment: 02/21/2016 patient is tolerating 3 L of O2 without difficulties. Her chest x-ray appears to be clear. Continue treatment with intensive steroids and nebulizers. 02/19/2016: Patient O2 sats are barely 93% 2 L of continue oxygen support. 02/18/2016: Patient still requiring significant oxygen and now is wheezing profusely. Continue O2 support. Admission: Patient does not use any oxygen at the assisted living facility she was found have a PO2 of 74 by the staff oxygen was started. By the time EMS arrived her sats were at 92% level she was given nebulizer treatment due to wheezing and seems to have improved significantly. (2) LLL pneumonia Acute J18.1 - LOBAR PNEUMONIA, UNSPECIFIED ORGANISM Present on Admission: Yes due to unspecified organism J18.1 - Lobar pneumonia, unspecified organism Comment: 02/19/2016 continue treatment with Rocephin and azithromycin. Admission: Patient will be treated for community-acquired left lower lobe pneumonia with Rocephin and azithromycin. Will monitor her oxygenation status very closely. (3) Bronchospasm Acute J98.01 - ACUTE BRONCHOSPASM Comment: Bronchospasm improved after steroid treatment (4) Chronic renal insufficiency, stage III (moderate) Chronic N18.3 - CHRONIC KIDNEY DISEASE, STAGE 3 (MODERATE) Present on Admission: Yes Comment: 02/18/2016: Creatinine down to 1.3. Admission: Continue to monitor renal status. Her creatinine of 1.4 is better than her usual baseline of approximately 2.0 (5) Hypoxia Acute R09.02 - HYPOXEMIA Present on Admission: Yes Comment: Continue oxygen supplementation. Check ambulating O2 sats prior to discharge. (6) Anemia, chronic disease Chronic D63.8 - ANEMIA IN OTHER CHRONIC DISEASES CLASSIFIED ELSEWHERE Comment: Patient likely with anemia due to chronic disease as well as due to renal insufficiency. Continue to monitor (7) Pacemaker Chronic Z95.0 - PRESENCE OF CARDIAC PACEMAKER Present on Admission: Yes Comment: Continue dual chamber pacing. Discharge Disposition: Assisted Living Facility Discharge Condition: Stable Physician Follow up/Referrals: Eloina Perla MD [Primary Care Provider] - One Week O2 Device: Nasal Cannula Diet at Discharge: As Tolerated Activity: As Tolerated Call Office For: Worsening Symptoms - DC Summary Notes HPI/Notes: - Chief Complaint Patient sent from [facility] due to hypoxemia. - History of Present Illness Pt arrived via EMS from [facility] with report of SHOB, decrease sats at 74 % RA and HR-199. EMS reported upon arrival sats-96% O2 at 2lpm and HR 64. Pt with audible wheezing given Albuterol neb x2. No report of fever. EMS STATES THEY WERE CALLED OUT IN REFERENCE TO SHOB. STATES THE PATIENT WAS PLACED ON O2 BY THE NURSING FACILITY AND SAT WAS 94%. PT PRESENTS WITH MILD SHOB , AND AUDIBLE WHEEZING. PT DENIES ANY PAIN, NAUSEA, CHILLS OR FEVER. Symptoms: Reports: Cough Recently Treated Infections:: Denies: Otitis media, Pneumonia, URI Recent Medications: Reports: None Relevant History Of: Reports: COPD, Heart Failure (CHF) Shortness of Breath: Mild Cough Frequency: Intermittent Cough Description: Reports: Moist, Congested Rhinorrhea: Reports: Clear Ear Symptoms: Reports: None Associated Signs and Symptoms: Denies: Cough, Earache, Fever, Headache, Nasal Symptoms, Sore Throat, Nausea, Vomiting, Diarrhea, Myalgia, Rash, Pain with head movement, AMS, Other Patient is extremely poor historian and very hard of hearing. I am unable to obtain any useful history from her. The entirety of the history is obtained from discussion with the ED physician and the medical record. Hospital Course Note:: Discharge summary on patient named JUAN RAMON BETTENCOURT admitted to [facility] on 02/17/16 by Lacy Irby MD. Date of discharge is []. Active Problems Acute respiratory failure with hypoxia (Acute) J96.01 02/19/2016: Patient O2 sats are barely 93% 2 L of continue oxygen support. : Patient still requiring significant oxygen and now is wheezing profusely. Continue O2 support. Admission: Patient does not use any oxygen at the assisted living facility she was found have a PO2 of 74 by the staff oxygen was started. By the time EMS arrived her sats were at 92% level she was given nebulizer treatment due to wheezing and seems to have improved significantly. Bronchospasm (Acute) J98.01 Bronchospasm improved after steroid treatment LLL pneumonia (Acute) J18.1 02/19/2016 continue treatment with Rocephin and azithromycin. Admission: Patient will be treated for community-acquired left lower lobe pneumonia with Rocephin and azithromycin. Will monitor her oxygenation status very closely. Chronic renal insufficiency, stage III (moderate) (Chronic) N18.3 02/18/2016: Creatinine down to 1.3. Admission: Continue to monitor renal status. Her creatinine of 1.4 is better than her usual baseline of approximately 2.0 02/21/16 06:20 02/21/16 06:20 Intake & Output 02/19/16 02/20/16 02/21/16 02/22/16 23:59 23:59 23:59 23:59 Intake Total 1404 2084 2153 792 Output Total 1350 895 200 800 Balance 54 1189 1953 -8 Patient's weight 141 lb 2 oz 139 lb 8 oz 140 lb 141 lb 3.2 oz CHEST 2 VIEW: 02/17/2016 at 11:50 a.m. New LEFT lower lobe opacity representing atelectasis versus infiltrate. PORTABLE CHEST 1 VIEW 02/17/2016 at 7:11 p.m. Cardiomegaly without acute cardiopulmonary findings. CHEST 2 VIEW 02/21/2016 at 6:00 a.m. Stable cardiomegaly, pulmonary vascular congestion and mild chronic interstitial lung disease. Code: 15283 (>30min.) - Physical Exam Vital Signs: Last Vital Signs Temp 97.5 F 02/22/16 14:00 Pulse 60 02/22/16 14:00 Resp 20 02/22/16 14:00 BP 116/54 L 02/22/16 14:00 Pulse Ox 94 02/22/16 14:00 Oxygen Pulse Oxygen Saturation [ 95 Seated] Pulse Oxygen Saturation 94 O2 Device Nasal Cannula Oxygen Flow Rate 3 Fraction of Inspired Oxygen ( FIO2) Constitutional: Alert, Confused, Well nourished. negative: Well appearing Oriented to: Person, Place - HEENT Head: Normal (normocephalic, atraumatic.), Other (No cervical lymphadenopathy. No supraclavicular lymphadenopathy. Neck: No palpable mass, supple , trachea midline.) Eye: Normal (pupils equal, reactive to light, and round; EOMI, Sclera white) Oropharynx: Normal (Pharynx: Moist without exudate,Gums-no swelling, No oropharyngeal lesions or erythema, Mucous membranes are dry.) Nose: No Symptoms Reported (septum midline, Nares patent, without discharge or bleeding.) - Respiratory/Cardiovascular Respiratory: Diminished, Rhonchi, Wheezes. negative: Rales - GI Auscultation: Normal (normal active sounds) Palpation: Normal (Soft,non distended,nontender. No hepatosplenomegaly.) Tenderness: Non tender (No rebound or guarding) Grijalva's Sign: Negative - Musculoskeletal Back: Normal (Non-Tender) Extremities: Normal (Normal tone, DP pulses 2+ bilaterally, No cyanosis or edema bilaterally, FROM bilaterally.) - Integumentary Lymphatics: Normal (No cervical lymphadenopathy. No supraclavicular lymphadenopathy.) - Neurologic Memory Impaired: Unable to Test Cerebellar: Unable to Test Mood Description: Normal, Calm
[2016-02-22] MEDS: AZITHROMYCIN 500 MG in D5W 250 ML IV SCH (17:20)
[2016-02-22] MEDS: ENOXAPARIN 30 MG/0.3 ML PFS SQ SCH (17:21)
[2016-02-22] MEDS: DONEPEZIL HCL 10 MG TAB PO SCH (20:59)
[2016-02-22] MEDS: LEVETIRACETAM 250 MG TAB PO SCH (21:00)
[2016-02-22] MEDS: PRAVASTATIN 20 MG TAB PO SCH (21:01)
[2016-02-23] MEDS: METHYLPREDNISOLONE 125 MG/2 ML VIAL IV SCH ×2 (03:02→09:07)
[2016-02-23] MEDS: ALBUTEROL 0.083% 3 ML NEB NEB SCH ×3 (04:33→13:46)
[2016-02-23] MEDS: SODIUM CHLORIDE 0.9% 3 ML FLUSH FLUSH SCH (05:50)
[2016-02-23] MEDS: hydrALAZINE 10 MG TAB PO SCH ×2 (05:51→14:25)
[2016-02-23] MEDS: ISOSORBIDE DINITRATE 10 MG TAB PO SCH ×2 (05:52→14:25)
[2016-02-23] MEDS: PANTOPRAZOLE 40 MG TAB PO SCH (05:52)
[2016-02-23] MEDS: FUROSEMIDE 40 MG TAB PO SCH ×2 (07:41→15:43)
[2016-02-23 08:10] LABS: MPV 8.5 fL (7.4-10.4)
[2016-02-23 08:15] LABS: BLOOD UREA NITROGEN 47 MG/DL (7-17); CALCIUM 8.8 MG/DL (8.4-10.2); CALCULATED OSMOLALITY 281 MOs/Kg (270-290); CHLORIDE 95 mEq/L (98-107); GLUCOSE 124 MG/DL (70-99); SODIUM LEVEL 139 mEq/L (137-146)
[2016-02-23] MEDS: MEMANTINE HCL 10 MG TAB PO SCH (09:07)
[2016-02-23] MEDS: CARVEDILOL 6.25 MG TAB PO SCH (09:07)
[2016-02-23] MEDS: SPIRONOLACTONE 25 MG TAB PO SCH (09:07)
[2016-02-23] MEDS: DILTIAZEM HCL 120 MG CAPSULE.CR PO SCH (09:07)
[2016-02-23] MEDS: LEVOTHYROXINE 50 MCG (0.05 MG) TAB PO SCH (09:07)
[2016-02-23] MEDS: GUAIFENESIN 600 MG LA TAB PO SCH (09:07)
[2016-02-23] MEDS: ARTIFICIAL TEARS OPH SOLN 15 ML OU SCH (09:08)
--- NOTE | 2016-02-23 10:03 | DIRPT ---
CLINICAL DATA: Followup of pneumonia. EXAM: PORTABLE CHEST 1 VIEW COMPARISON: 02/21/2016 FINDINGS: Pacer with leads at right atrium and right ventricle. No lead discontinuity. Patient rotated minimally left. Midline trachea. Cardiomegaly accentuated by AP portable technique. No right and no definite left pleural effusion; breast tissue projects over the left costophrenic angle. No pneumothorax. Chronic interstitial thickening, mild. No well-defined lobar consolidation. IMPRESSION: Cardiomegaly and chronic interstitial thickening. No well-defined lobar consolidation. Electronically Signed By: Yinka Segura M.D. On: 02/23/2016 10:00
[2016-02-23 10:26] LABS: SEG NEUTROPHIL 85 % (45-76)
[2016-02-23] MEDS: VITAMINS, MULTIPLE CAP PO SCH (11:00)
--- NOTE | 2016-02-23 12:01 | PCM.DCS92 ---
- Final/Secondary Discharge Diagnosis (1) Acute respiratory failure with hypoxia Acute J96.01 - ACUTE RESPIRATORY FAILURE WITH HYPOXIA Present on Admission: Yes Comment: Patient was found to be hypoxic at assisted living facility. Patient required significant oxygen and wheezing in the hospital, she was treated with oxygen support, intensive steroids and nebulizers. She did well, oxygen was titrated down and she will be discharged to assisted living today with home health for oxygen and nursing. (2) Bronchospasm Acute J98.01 - ACUTE BRONCHOSPASM Comment: Bronchospasm improved after steroid treatment (3) LLL pneumonia Acute J18.1 - LOBAR PNEUMONIA, UNSPECIFIED ORGANISM Present on Admission: Yes due to unspecified organism J18.1 - Lobar pneumonia, unspecified organism Comment: Patient treated for community-acquired left lower lobe pneumonia, with empiric IV Rocephin and azithromycin. Oxygen was monitored closely, she is improved today and ready for discharge home. Will complete a few more days of cefdinir. As well as p.o. steroid taper. (4) Chronic renal insufficiency, stage III (moderate) Chronic N18.3 - CHRONIC KIDNEY DISEASE, STAGE 3 (MODERATE) Present on Admission: Yes Comment: 02/18/2016: Creatinine down to 1.3. Admission: Continue to monitor renal status. 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 - HYPERTENSIVE HEART DISEASE WITH HEART FAILURE Comment: Stable controlled at target continue current meds Discharge Disposition: Snf Facility Discharge Condition: Improved Cognitive Discharge Status: Unimpaired Fuctional Discharge Status: Independent Physician Follow up/Referrals: Eloina Perla MD [Primary Care Provider] - One Week New Prescriptions: Cefdinir [Omnicef] 300 mg PO BID 2 Days Levothyroxine [Synthroid, Levoxyl] 50 mcg PO DAILY #30 tablet Prednisone [Sterapred Ds] 10 mg PO DIR #21 pack Discharge Home Medication List Carvedilol [Coreg] 6.25 mg PO BID 04/07/15 [History Confirmed 02/23/16 Last Taken 02/23/16 09:07] Citalopram Hydrobromide [Citalopram HBr] 20 mg PO DAILY 04/07/15 [History Confirmed 02/23/16 Last Taken 02/23/16 09:07] Dextran 70/Hypromellose/Pf [Artificial Tears Drops (1.0%)] 1 drop OU BID [History Confirmed 02/17/16 Last Taken 02/16/16 22:00] Diltiazem HCl [Diltiazem 24Hr ER] 120 mg PO DAILY 04/07/15 [History Confirmed Last Taken 02/23/16 09:07] Donepezil HCl 10 mg PO HS 04/07/15 [History Confirmed 02/23/16 Last Taken 20:59] Hydralazine HCl 10 mg PO TID 04/07/15 [History Confirmed 02/23/16 Last Taken 03/10 05:51] Isosorbide Dinitrate 10 mg PO TID 04/07/15 [History Confirmed 02/23/16 Last Taken 02/23/16 05:52] Levetiracetam 250 mg PO QHS 04/07/15 [History Confirmed 02/23/16 Last Taken 21:00] Memantine HCl 10 mg PO BID 04/07/15 [History Confirmed 02/23/16 Last Taken 02/22 09:07] Multivits,Th W-Fe,Other Min [Thera-M] 1 tab PO DAILY 04/07/15 [History Confirmed 02/23/16 Last Taken 02/23/16 11:00] Pantoprazole Sodium 40 mg PO DAILY 04/07/15 [History Confirmed 02/23/16 Last Taken 02/23/16 05:52] Spironolactone [Aldactone] 25 mg PO DAILY 04/15/15 [History Confirmed 02/23/16 Last Taken 02/23/16 09:07] Acetaminophen Ex Str Tablet [TYLENOL EXTRA STRENGTH Tablet] 1,000 mg PO Q4H PRN 02/17/16 [History Confirmed 02/17/16 Last Taken Unknown] Benzonatate [Tessalon Perle] 100 mg PO TID PRN 02/17/16 [History Confirmed 02/16 Last Taken 01/30/16] Diphenhydramine [Benadryl] 25 mg PO Q8H PRN 02/17/16 [History Confirmed Last Taken Unknown] Furosemide [Lasix] 40 mg PO BID 02/17/16 [History Confirmed 02/23/16 Last Taken 02/23/16 07:41] Guaifenesin/D-Methorphan Hb [Cough Syrup Dm] 5 ml PO BID PRN 02/17/16 [History Confirmed 02/17/16 Last Taken 02/15/16] Lovastatin 10 mg PO HS 02/17/16 [History Confirmed 02/23/16 Last Taken 02/22/16 21:01] Petrolatum,White [Petroleum Jelly] 1 noreen TOP DAILY PRN 02/17/16 [History Confirmed 02/17/16 Last Taken Unknown] Cefdinir [Omnicef] 300 mg PO BID 2 Days 02/23/16 [Rx Last Taken Unknown] Levothyroxine [Synthroid, Levoxyl] 50 mcg PO DAILY #30 tablet 02/23/16 [Rx Last Taken 02/23/16 09:07] Prednisone [Sterapred Ds] 10 mg PO DIR #21 pack 02/23/16 [Rx Last Taken Unknown] O2 Device: Nasal Cannula Diet at Discharge: As Tolerated Activity: As Tolerated Call Office For: Worsening Symptoms - DC Summary Notes HPI/Notes: This is an 85-year-old female with a history of COPD and hypertension who was admitted to the hospital with a community-acquired left lower lobe pneumonia after being found hypoxic at her assisted living facility. She was treated as above, she is doing well and is ready for discharge back to assisted living facility with home health services today. Please see the hospital problems and discharge problems above for details of the hospital course including diagnostics and treatment. The plan of care including medications, prognosis, follow-up including alarm symptoms for which medical care should be sought were reviewed with the patient and any available family members/caretakers. The patient is agreeable to discharge today, and all questions were answered by me to their satisfaction. Hospital Course Note:: Discharge summary on patient named JUAN RAMON FENTON SG admitted to [facility] on 02/17/16 by Lacy Irby MD. Date of discharge is []. Total Time: 41 Wound Care Surgical Site: No - Physical Exam Vital Signs: Last Vital Signs Temp 98.3 F 02/23/16 05:45 Pulse 97 02/23/16 11:17 Resp 16 02/23/16 07:54 BP 124/68 02/23/16 07:40 Pulse Ox 93 02/23/16 11:17 Oxygen Pulse Oxygen Saturation [ 95 Seated] Pulse Oxygen Saturation 93 O2 Device Nasal Cannula Oxygen Flow Rate 2 Fraction of Inspired Oxygen ( FIO2) Constitutional: No apparent distress, Alert, Confused. negative: Well appearing Oriented to: Person, Place Exam: Resting comfortably in a chair at the bedside. Discussed with patient and nurse at the bedside, patient feels ready to discharge from the hospital today. She has no acute complaints. - HEENT Head: Normal (normocephalic, atraumatic.), Other (No cervical lymphadenopathy. No supraclavicular lymphadenopathy. Neck: No palpable mass, supple , trachea midline.) Eye: Normal (pupils equal, reactive to light, and round; EOMI, Sclera white) Oropharynx: Normal (Pharynx: Moist without exudate,Gums-no swelling, No oropharyngeal lesions or erythema, Mucous membranes are dry.) Nose: No Symptoms Reported (septum midline, Nares patent, without discharge or bleeding.) - Respiratory/Cardiovascular Respiratory: Diminished, Rhonchi, Wheezes. negative: Rales - GI Auscultation: Normal (normal active sounds) Palpation: Normal (Soft,non distended,nontender. No hepatosplenomegaly.) Tenderness: Non tender (No rebound or guarding) Grijalva's Sign: Negative - Musculoskeletal Back: Normal (Non-Tender) Extremities: Normal (Normal tone, DP pulses 2+ bilaterally, No cyanosis or edema bilaterally, FROM bilaterally.) - Integumentary Lymphatics: Normal (No cervical lymphadenopathy. No supraclavicular lymphadenopathy.) - Neurologic Memory Impaired: Unable to Test Cerebellar: Unable to Test Mood Description: Normal, Calm
[2016-02-23 14:06] VITALS: BP 119/64; PULSE 61; TEMP 97.8
[2016-02-23] MEDS: CEFTRIAXONE 1 GM in D5W 100 ML IV SCH (16:00)
== END 2016-02-23 16:20 | DRG 193 ==
LOC: ED 11:42 → MPS3 15:05
PROVIDERS: ADMIT Hospitalist; ATTEND Internal Medicine
PROC: 039B3ZZ Drainage of Right Radial Artery, Percutaneous Approach (ICD-10-PCS; principal; 2016-02-17)
DX: J18.1 Lobar pneumonia, unspecified organism (principal); J96.01 Acute respiratory failure with hypoxia; I13.0 Hypertensive heart and chronic kidney disease with heart failure and stage 1 through stage 4 chronic kidney disease, or unspecified chronic kidney disease; I50.9 Heart failure, unspecified; Z23 Encounter for immunization; Z66 Do not resuscitate; N18.3 Chronic kidney disease, stage 3 (moderate); J44.9 Chronic obstructive pulmonary disease, unspecified; D63.1 Anemia in chronic kidney disease; Z95.0 Presence of cardiac pacemaker; J98.01 Acute bronchospasm; Z87.891 Personal history of nicotine dependence; E78.00 Pure hypercholesterolemia, unspecified; K21.9 Gastro-esophageal reflux disease without esophagitis; H91.90 Unspecified hearing loss, unspecified ear; F03.90 Unspecified dementia, unspecified severity, without behavioral disturbance, psychotic disturbance, mood disturbance, and anxiety; Z79.899 Other long term (current) drug therapy
CPT/HCPCS: 36415; 36600; 71010; 71020; 80048; 80053; 81001; 82272; 82550; 82803; 83605; 83735; 83880; 84443; 84484; 85007; 85025; 85027; 87040; 90471; 90732; 93005; 94640; 94762; 96372; 96374; 98960; 99284; G0237; J0456; J0696; J1650; J2060; J2930; J3490; J7040; J7060; J7070; J7620

== ENCOUNTER 2016-03-01 04:47 | Inpatient (IN) | payer MEDICARE, MEDICAID ==
[2016-03-01] MEDS ORDERED: SODIUM CHLORIDE 0.9% 10 ML FLUSH FLUSH PRN (04:49)
[2016-03-01] MEDS ORDERED: NS 1,000 ML IV ONE (04:49)
[2016-03-01 04:56] VITALS: BMI 25.6
[2016-03-01 05:12] LABS: MPV 8.8 fL (7.4-10.4)
--- NOTE | 2016-03-01 05:16 | DIRPT ---
CLINICAL DATA: Acute onset of generalized chest pain. Initial encounter. EXAM: PORTABLE CHEST 1 VIEW COMPARISON: Chest radiograph performed 02/23/2016 FINDINGS: The lungs are well-aerated. Vascular congestion is noted. Mild right-sided atelectasis is noted. There is no evidence of pleural effusion or pneumothorax. The cardiomediastinal silhouette is mildly enlarged. A pacemaker is noted overlying the left chest wall, with leads ending overlying the right atrium and right ventricle. No acute osseous abnormalities are seen. IMPRESSION: Vascular congestion and mild cardiomegaly. Mild right-sided atelectasis noted. Electronically Signed By: Meliton Pitts M.D. On: 03/01/2016 05:13
[2016-03-01 05:21] LABS: BLOOD UREA NITROGEN 43 MG/DL (7-17); CALCIUM 9.6 MG/DL (8.4-10.2); CALCULATED OSMOLALITY 282 MOs/Kg (270-290); CHLORIDE 93 mEq/L (98-107); GLUCOSE 95 MG/DL (70-99); SODIUM LEVEL 141 mEq/L (137-146); TOTAL PROTEIN 7.6 G/DL (6.3-8.2)
--- NOTE | 2016-03-01 05:37 | EDPRACDOC ---
ED Seizure HPI - General Information Chief Complaint: Neuro Symptoms/Deficits Stated Complaint: SYNCOPE Time Seen by Provider: 03/01/16 04:49 Information Source: [facility] Mode Of Arrival: Ambulance Home Medications: Home Medications Carvedilol [Coreg] 6.25 mg PO BID 04/07/15 Citalopram Hydrobromide [Citalopram HBr] 20 mg PO DAILY 04/07/15 Dextran 70/Hypromellose/Pf [Artificial Tears Drops (1.0%)] 1 drop OU BID Diltiazem HCl [Diltiazem 24Hr ER] 120 mg PO DAILY 04/07/15 Donepezil HCl 10 mg PO HS 04/07/15 Hydralazine HCl 10 mg PO TID 04/07/15 Isosorbide Dinitrate 10 mg PO TID 04/07/15 Levetiracetam 250 mg PO QHS 04/07/15 Memantine HCl 10 mg PO BID 04/07/15 Multivits,Th W-Fe,Other Min [Thera-M] 1 tab PO DAILY 04/07/15 Pantoprazole Sodium 40 mg PO DAILY 04/07/15 Spironolactone [Aldactone] 25 mg PO DAILY 04/15/15 Acetaminophen Ex Str Tablet [TYLENOL EXTRA STRENGTH Tablet] 1,000 mg PO Q4H PRN 02/17/16 Benzonatate [Tessalon Perle] 100 mg PO TID PRN 02/17/16 Diphenhydramine [Benadryl] 25 mg PO Q8H PRN 02/17/16 Furosemide [Lasix] 40 mg PO BID 02/17/16 Guaifenesin/D-Methorphan Hb [Cough Syrup Dm] 5 ml PO BID PRN 02/17/16 Lovastatin 10 mg PO HS 02/17/16 Petrolatum,White [Petroleum Jelly] 1 noreen TOP DAILY PRN 02/17/16 Cefdinir [Omnicef] 300 mg PO BID 2 Days 02/23/16 Levothyroxine [Synthroid, Levoxyl] 50 mcg PO DAILY #30 tablet 02/23/16 Prednisone [Sterapred Ds] 10 mg PO DIR #21 pack 02/23/16 Allergies/Adverse Reactions: Allergies Allergy/AdvReac Type Severity Reaction Status Date / Time NSAIDS (Non-Steroidal AdvReac Intermediate See Verified 03/01/16 04:52 Anti-Inflamma Comments - History of Present Illness Onset: TODAY Medications/Treatment STAFF REPORTER IV No HPI: SPOKE WITH EPIC TRAINER. EPIC TRAINER UNSURE IF SYNCOPE OR SEIZURE. EPIC TRAINER REPORTS HX OF SEIZURES BEFORE. PT ALSO REPORTED TO EPIC TRAINER ABOUT CP. NONE HERE. Postictal: No Episodes: Reports: recent history Prior to Seizure: Reports: Normal During Seizure: Denies: Salivation (drooling) - Treatment Prior to ED Arrival Reported Medications/Treatment STAFF REPORTER IV No ED Past Medical History - History Reviewed Information Unobtainable: Yes Unable to obtain information due to patient condition - Patient Medical History Neurological History: Reports: Seizures, Dementia Cardiac History: Reports: Atrial Fibrillation, Hypertension, Congestive Heart Failure, Hypercholesterolemia, Pacemaker (For sick sinus syndrome.), Syncope. Denies: Coronary Artery Disease, Heart Attack, Cardiac Catheterization, CABG Respiratory History: Reports: COPD, Pneumonia. Denies: Asthma, Bronchitis, Asbestosis, Aspiration Pneumonia, Cough, Chronic Bronchitis, Emphysema, Pulmonary Embolism GI/ History: Reports: Renal Failure, Gastroesophageal Reflux, Diverticulosis. Denies: Renal Disease, Renal (Kidney) Cancer, Kidney (Renal Surgery), Urinary Tract Infection, Kidney Stones, Liver Failure, Ulcer, IBD, Pancreatitis Musculoskeletal History: Denies: Arthritis, Gout, Rheumatoid Arthritis, Osteoarthritis Psychological History: Reports: Anxiety. Denies: Depression, Substance Use Disorder Systemic History: Reports: Anemia. Denies: Diabetes, Hypothyroidism Surgical History: Reports: Other (Patient was unaware of any surgeries.). Denies: CABG, Hysterectomy, Angioplasty, Cardiac Catheterization, Hernia Surgery , Tonsillectomy, Tonsillectomy/Adnoidectomy - Family Medical History Reports: Cancer (MOTHER). Denies: Hypertension, Diabetes, Stroke, Cardiac Disorders - Social Medical History Smoking Status: Never smoker Social History: Denies: Amphetamine Use, Substance Use Disorder EDM Review of Systems - Review of Systems ROS Unobtainable: Yes Review of systems cannot be obtained due to the patient's medical condition - Physical Exam Constitutional: Alert (Awake), No apparent distress Oriented to: Time, Person, Place Last recorded Vital Signs: Last Vital Signs Temp 97.9 F 03/01/16 04:52 Pulse 61 03/01/16 05:25 Resp 20 03/01/16 05:25 BP 117/65 03/01/16 05:25 Pulse Ox 96 03/01/16 05:25 Oxygen Pulse Oxygen Saturation 96 O2 Device Room Air Oxygen Flow Rate Fraction of Inspired Oxygen ( FIO2) - HEENT Head: Normal ( normocephalic) Eye Exam: Normal (PERRL, EOMI, Sclera white) Oropharynx: Normal (Pharynx:Moist without exudate,Gums-no swelling) Tympanic Membrane: Normal ENT EAC: Normal TMJ: Normal Nose: No Symptoms Reported (septum midline) Neck: Normal (FROM, trachea at midline) - Respiratory/Cardiovascular Respiratory: Normal - CTA (BBS clear to auscultation without adventitious sounds ) Cardiovascular: Normal (RRR without murmur, gallop or rub) - GI Auscultation: Normal (NABS) Palpation: Normal (Soft,No rebound or guarding, non distended) Tenderness: Non tender Grijalva's Sign: Negative - Musculoskeletal Back: Normal (Non-Tender) Extremities: Normal (Normal tone, Pulses 2+ No cyanosis or edema, FROM) - Integumentary Skin: Normal, Warm, Dry Lymphatics: Normal (no adenopathy) - Neurologic Memory Impaired: Normal Motor Function: Normal (Normal tone, Pulses 2+ No cyanosis or edema, FROM) Cranial Nerve: Normal (CN II-X11 intact sensation, strength 5/5) Cerebellar: Normal Mood Description: Normal Perception: Normal - Results 03/01/16 05:00 03/01/16 05:00 WBC 19.7 xk/uL (3.8-10.8) H 03/01/16 05:00 RBC 4.10 xM/uL (4.20-5.40) L 03/01/16 05:00 Hgb 12.8 g/dL (12.0-16.0) D 03/01/16 05:00 Hct 39.6 % (36-47) 03/01/16 05:00 MCV 97 fL (81-99) 03/01/16 05:00 MCH 31.2 pg (27-32) 03/01/16 05:00 MCHC 32.2 g/dl (33-36) L 03/01/16 05:00 RDW 14.9 % (11.5-14.5) H 03/01/16 05:00 Plt Count 118 xk/uL (130-400) L 03/01/16 05:00 MPV 8.8 fL (7.4-10.4) 03/01/16 05:00 Sodium 141 mEq/L (137-146) 03/01/16 05:00 Potassium 3.8 mEq/L (3.5-5.1) 03/01/16 05:00 Chloride 93 mEq/L (98-107) L 03/01/16 05:00 Carbon Dioxide 38 mMOL/L (22-33) H 03/01/16 05:00 Anion Gap 14 mEq/L (8-16) 03/01/16 05:00 BUN 43 MG/DL (7-17) H 03/01/16 05:00 Creatinine 1.10 MG/DL (0.52-1.04) H 03/01/16 05:00 Estimated GFR (MDRD) 47 mL/min (>=60) L 03/01/16 05:00 Glucose 95 MG/DL (70-99) 03/01/16 05:00 Calculated Osmolality 282 MOs/Kg (270-290) 03/01/16 05:00 Calcium 9.6 MG/DL (8.4-10.2) 03/01/16 05:00 Total Bilirubin 1.1 MG/DL (0.2-1.3) 03/01/16 05:00 AST 31 IU/L (14-36) 03/01/16 05:00 ALT 49 IU/L (9-52) 03/01/16 05:00 Alkaline Phosphatase 90 IU/L (55-165) 03/01/16 05:00 Troponin I 0.03 ng/mL (<.04) 03/01/16 05:00 [id number] Pept 939 pg/mL (0-1800) 03/01/16 05:00 Total Protein 7.6 G/DL (6.3-8.2) 03/01/16 05:00 Albumin 4.3 G/DL (3.5-5.0) 03/01/16 05:00 Lab Results 03/01/16 03/01/16 05:00 05:00 WBC 19.7 H RBC 4.10 L Hgb 12.8 D Hct 39.6 MCV 97 MCH 31.2 MCHC 32.2 L RDW 14.9 H Plt Count 118 L MPV 8.8 Sodium 141 Potassium 3.8 Chloride 93 L Carbon Dioxide 38 H Anion Gap 14 BUN 43 H Creatinine 1.10 H Estimated GFR (MDRD) 47 L Glucose 95 Calculated Osmolality 282 Calcium 9.6 Total Bilirubin 1.1 AST 31 ALT 49 Alkaline Phosphatase 90 Troponin I 0.03 [id number]-[id number] Pept 939 Total Protein 7.6 Albumin 4.3 - EKG EKG #1 [place]: Normal Rhythm: Paced Block: None Hypertrophy: None ST: Normal - Departure Yes I personally saw and evaluated the patient. Disposition: Admit IP To This Hospital Condition: Good Final Diagnosis: SYNCOPE VS SEIZURE Referrals: Eloina Perla MD [Primary Care Provider] - One Week Decision to Admit Time: 05:37 (SUNDEEP) Decision to admit date: 03/01/16 Decision to admit: from ED
[2016-03-01 05:45] LABS: PARTIAL THROMB. TIME 24.5 SEC (22-35); PT-INR 1.1
--- NOTE | 2016-03-01 05:47 | HISTPHYS ---
- Chief Complaint syncope or seizure. Also chest pain. - History of Present Illness PRIMARY CARE PROVIDER: Dr. Perla HPI: The patient is an 85 yo woman with COPD, CHF systolic (EF 40-45% in 04/2014), sick sinus syndrome with pacemaker in place, seizure disorder, who presents after an episode of unresponsiveness that per report was either a seizure or a syncopal episode. The episode resolved. Of note, patient was hospitalized 02/17/16 - 02/23/16 for acute respiratory failure, left lower lobe pneumonia, which was treated in hospital with IV ceftriaxone and IV azithromycin; the patient was discharged on cefdinir x 2 more days and a prednisone taper, with PRN oxygen by nasal cannula. Currently the patient is not speaking, so cannot give any history. History is obtained from the facility records and the emergency department staff. Onset: today. Duration: intermittent. Location: generalized. Character: per report patient had a loss of consciousness and had some shaking. Alleviated by: Nothing. Exacerbated by: Nothing. Associated Symptoms: No other symptoms known. Treatments: none at home except usual medications. In the emergency department, the patient could not speak. She did have some eye blinking then some shaking of her left arm. Appeared to have a partial seizure. - Medical History Cardiac History: Reports: Atrial Fibrillation, Hypertension, Congestive Heart Failure (ECHO 04/2014: EF40-45%. Hypokinesis apical inf+ant wall. LAE. Pacemaker. ), Hypercholesterolemia, Pacemaker (For sick sinus syndrome.), Syncope Respiratory History: Reports: COPD, Pneumonia GI/ History: Reports: Renal Failure (CKD stage 3.), Gastroesophageal Reflux, Diverticulosis Systemic History: Reports: Anemia Neurological History: Reports: Seizures, Dementia Psychological History: Reports: Anxiety - Surgical History Reports: Other (Patient was unaware of any surgeries.) - Medictions/Allergies Allergies NSAIDS (Non-Steroidal Anti-Inflamma Adverse Reaction (Intermediate, Verified 10/08 04:52) See Comments Renal failure Current Medication List: Reviewed Home Medications Carvedilol [Coreg] 6.25 mg PO BID 04/07/15 Citalopram Hydrobromide [Citalopram HBr] 20 mg PO DAILY 04/07/15 Dextran 70/Hypromellose/Pf [Artificial Tears Drops (1.0%)] 1 drop OU BID Diltiazem HCl [Diltiazem 24Hr ER] 120 mg PO DAILY 04/07/15 Donepezil HCl 10 mg PO HS 04/07/15 Hydralazine HCl 10 mg PO TID 04/07/15 Isosorbide Dinitrate 10 mg PO TID 04/07/15 Levetiracetam 250 mg PO QHS 04/07/15 Memantine HCl 10 mg PO BID 04/07/15 Multivits,Th W-Fe,Other Min [Thera-M] 1 tab PO DAILY 04/07/15 Pantoprazole Sodium 40 mg PO DAILY 04/07/15 Spironolactone [Aldactone] 25 mg PO DAILY 04/15/15 Acetaminophen Ex Str Tablet [TYLENOL EXTRA STRENGTH Tablet] 1,000 mg PO Q4H PRN 02/17/16 Benzonatate [Tessalon Perle] 100 mg PO TID PRN 02/17/16 Diphenhydramine [Benadryl] 25 mg PO Q8H PRN 02/17/16 Furosemide [Lasix] 40 mg PO BID 02/17/16 Guaifenesin/D-Methorphan Hb [Cough Syrup Dm] 5 ml PO BID PRN 02/17/16 Lovastatin 10 mg PO HS 02/17/16 Petrolatum,White [Petroleum Jelly] 1 noreen TOP DAILY PRN 02/17/16 Cefdinir [Omnicef] 300 mg PO BID 2 Days 02/23/16 Levothyroxine [Synthroid, Levoxyl] 50 mcg PO DAILY #30 tablet 02/23/16 Prednisone [Sterapred Ds] 10 mg PO DIR #21 pack 02/23/16 - Family History Reports: Cancer (MOTHER). Denies: Hypertension, Diabetes, Stroke, Cardiac Disorders - Social History Lives: in Assisted Living ([facility]. Note: patient has a [facility] DNR form[facility] Smoking Status: Never smoker Social History: Denies: Alcohol Use, Substance Use Disorder - Review of Systems Yes Review of systems cannot be obtained due to the patient's medical condition - Physical Exam Vital Signs: Initial Vitals Temperature 97.9 F 03/01/16 04:52 Pulse Rate 91 03/01/16 04:52 Respiratory Rate 20 03/01/16 04:52 Blood Pressure 144/83 03/01/16 04:52 Pulse Oxygen Saturation 96 03/01/16 04:52 Vital Signs - 24 hr 03/01/16 03/01/16 03/01/16 04:52 05:13 05:14 Temperature 97.9 F Pulse Rate 91 81 89 Respiratory 20 Rate Blood Pressure 144/83 129/70 Lying down 120/66 Sitting Pulse Oxygen 96 Saturation 03/01/16 03/01/16 05:15 05:25 Temperature Pulse Rate 77 61 Respiratory 20 Rate Blood Pressure 102/57 L Standing 117/65 Pulse Oxygen 96 Saturation Weight: 63.5 kg Height: 5 feet 2 inches BMI: 25.6 - Other Exam Other Exam Findings: GENERAL: Ill-appearing, well nourished, in acute distress. HEENT: Normocephalic, atraumatic; pupils equal and round. Nares patent, without discharge or bleeding. No oropharyngeal lesions or erythema. Mucous membranes are dry. NECK: is supple, no masses, trachea midline. RESPIRATORY: Clear to auscultation bilaterally. Chest wall movements are symmetric. No use of accessory muscles to breathe. No wheezing, rales. Decreased breath sounds bilaterally. Minimal rhonchi on right. CARDIOVASCULAR: Normal S1, S2. Murmur 2/6 systolic. No rubs, or gallops. PMI non -displaced. Carotids: no carotid bruits. No bradycardia or tachycardia. DP pulses 2+ bilaterally. GI: soft, nontender, non-distended, normal active bowel sounds. No hepatosplenomegaly. INTEGUMENT: Clean, dry, and intact. No rashes. No lesions. MUSCULOSKELETAL: Moving all extremities. No cyanosis. No clubbing. Edema: none bilaterally. NEUROLOGICAL: Cranial nerves 2-12 grossly intact, as best can be determined in this patient who is not speaking. Reflexes: 2+ bilaterally and brisk. Babinski: toes downgoing bilaterally. Further neurologic exam could not be performed due to the medical condition of the patient. PSYCHIATRIC: Not oriented. Not speaking. Not responding to commands. LYMPHATIC: No cervical lymphadenopathy. No supraclavicular lymphadenopathy. - Lab Results Laboratory Results - last 24 hr 03/01/16 03/01/16 03/01/16 05:00 05:00 05:00 WBC 19.7 H RBC 4.10 L Hgb 12.8 D Hct 39.6 MCV 97 MCH 31.2 MCHC 32.2 L RDW 14.9 H Plt Count 118 L MPV 8.8 PT 11.8 H INR 1.1 APTT 24.5 Sodium 141 Potassium 3.8 Chloride 93 L Carbon Dioxide 38 H Anion Gap 14 BUN 43 H Creatinine 1.10 H Estimated GFR (MDRD) 47 L Glucose 95 Calculated Osmolality 282 Calcium 9.6 Total Bilirubin 1.1 AST 31 ALT 49 Alkaline Phosphatase 90 Troponin I 0.03 Drz-N-Eyrlgazpmep Pept 939 Total Protein 7.6 Albumin 4.3 - Diagnostic Findings DIAGNOSTIC DATA: EK bpm. Paced rhythm. Reviewed EKG personally. IMAGING: Chest x-ray, viewed personally: EXAM: PORTABLE CHEST 1 VIEW COMPARISON: Chest radiograph performed 02/23/2016 FINDINGS: The lungs are well-aerated. Vascular congestion is noted. Mild right-sided atelectasis is noted. There is no evidence of pleural effusion or pneumothorax. The cardiomediastinal silhouette is mildly enlarged. A pacemaker is noted overlying the left chest wall, with leads ending overlying the right atrium and right ventricle. No acute osseous abnormalities are seen. IMPRESSION: Vascular congestion and mild cardiomegaly. Mild right-sided atelectasis noted. Note: by my reading, right lower lung opacity could represent infection. - Assessment (1) Seizure disorder G40.909 - EPILEPSY, UNSP, NOT INTRACTABLE, WITHOUT STATUS EPILEPTICUS Acute Present on Admission: Yes Unclear whether patient had syncope or a seizure prior to arrival at the hospital. Appeared to have a brief partial seizure in the emergency department followed by a post-ictal period. Plan: Neuro checks. Seizure precautions. Keppra IV then transition to PO. (2) Syncope R55 - SYNCOPE AND COLLAPSE Acute Present on Admission: Yes Qualifiers: Encounter type: initial encounter Unclear whether patient had syncope or a seizure prior to arrival at the hospital. She was orthostatic. Plan: Neuro checks. Seizure precautions. Trial of IVFs. (3) Leukocytosis D72.829 - ELEVATED WHITE BLOOD CELL COUNT, UNSPECIFIED Acute Present on Admission: Yes Plan: Check cultures. Consider antibiotics. (4) Metabolic encephalopathy G93.41 - METABOLIC ENCEPHALOPATHY Acute Present on Admission: Yes May be due to seizure or other cause. Plan: Neuro checks. NPO until speech therapy eval. Further treatment depending on course. (5) DNR (do not resuscitate) Z66 - DO NOT RESUSCITATE Chronic Present on Admission: Yes Patient presented with a portable DNR form. Plan: Continue DNR status. Case Care Discussed with: Patient, Nursing Staff
[2016-03-01 05:49] LABS: SEG NEUTROPHIL 75 % (45-76)
[2016-03-01 07:48] LABS: LEUKOCYTES/URINE NEG (NEGATIVE); NITRITE/URINE NEG (NEGATIVE); URINE OCCULT BLOOD NEG (NEG/TRACE); WBC/URINE 0-2 (0-5)
[2016-03-01] MEDS ORDERED: PIPERACILLIN AND TAZOBACTAM 4.5 GM in D5W 100 ML IV ONE (08:00)
[2016-03-01] MEDS ORDERED: Vaccine Screening Complete SCH (08:00)
[2016-03-01] MEDS ORDERED: SIMETHICONE 80 MG TAB PO PRN (09:15)
[2016-03-01] MEDS ORDERED: ACETAMINOPHEN 325 MG/TAB TABLET PO PRN (09:15)
[2016-03-01] MEDS ORDERED: SENNA CONCENTRATE TAB PO PRN (09:15)
[2016-03-01] MEDS ORDERED: BISACODYL 5 MG TAB PO PRN (09:15)
[2016-03-01] MEDS ORDERED: ONDANSETRON HCL 4 MG/2 ML VIAL IV PRN (09:15)
[2016-03-01] MEDS ORDERED: BENZONATATE 100 MG PERLES PO PRN (09:15)
[2016-03-01] MEDS ORDERED: ACETAMINOPHEN 325 MG SUPP PR PRN (09:15)
[2016-03-01] MEDS ORDERED: TEMAZEPAM 15 MG CAP PO PRN (09:15)
[2016-03-01] MEDS ORDERED: PROMETHAZINE 25 MG/ML VIAL IV PRN (09:15)
[2016-03-01] MEDS ORDERED: Docusate Sodium 100 MG CAP PO PRN (09:15)
[2016-03-01] MEDS ORDERED: GUAIFEN 100 MG-DEXTROMETH 10 MG PER 5 ML PO PRN (09:15)
[2016-03-01] MEDS ORDERED: Levofloxacin 750 mg/150 ml D5W 750 MG/150 ML RTU IV SCH (10:00)
[2016-03-01] MEDS: NS 1,000 ML IV SCH ×2 (10:28→23:09)
--- NOTE | 2016-03-01 12:16 | DIRPT ---
CLINICAL DATA: Metabolic encephalopathy, seizure peer EXAM: CT HEAD WITHOUT CONTRAST TECHNIQUE: Contiguous axial images were obtained from the base of the skull through the vertex without intravenous contrast. COMPARISON: Head CT dated 04/13/2015. FINDINGS: There is generalized brain atrophy with commensurate dilatation of the ventricles and sulci, not significantly changed compared to the previous head CT. Ventricles are stable in size and configuration. Again noted are mild chronic small vessel ischemic changes within the bilateral periventricular white matter regions. There is no mass, hemorrhage, edema or other evidence of acute parenchymal abnormality. No extra-axial hemorrhage. There are chronic calcified atherosclerotic changes of the large vessels at the skull base. No osseous abnormality. Visualized upper paranasal sinuses are clear. Mastoid air cells are clear. Superficial soft tissues are unremarkable. IMPRESSION: 1. Atrophy and chronic small vessel ischemic changes in the white matter, stable compared to the previous exam. 2. No evidence of acute intracranial abnormality. No intracranial mass, hemorrhage or edema. Electronically Signed By: Bartolome Lopez M.D. On: 03/01/2016 12:13
[2016-03-01] MEDS: ASPIRIN (CHEWABLE) 81 MG TAB PO SCH (12:44)
[2016-03-01] MEDS ORDERED: LORAZEPAM 2 MG/ML VIAL IV ONE (15:15)
[2016-03-01] MEDS ORDERED: LORAZEPAM 2 MG/ML VIAL ONE (15:17)
[2016-03-01] MEDS ORDERED: PETROLATUM WHITE TOP PRN (15:42)
[2016-03-01] MEDS ORDERED: PETROLEUM JELLY TOP PRN (15:51)
[2016-03-01] MEDS: PIPERACILLIN AND TAZOBACTAM 4.5 GM in D5W 100 ML IV SCH ×2 (15:55→23:11)
[2016-03-01] MEDS: FUROSEMIDE 40 MG TAB PO SCH (17:22)
[2016-03-01] MEDS ORDERED: ENOXAPARIN 40 MG/0.4 ML PFS SQ SCH (18:00)
[2016-03-01] MEDS ORDERED: LOVASTATIN 10 MG PO SCH (21:00)
[2016-03-01] MEDS ORDERED: PRAVASTATIN 20 MG TAB PO SCH (21:00)
[2016-03-01] MEDS ORDERED: DONEPEZIL HCL 10 MG TAB PO SCH (21:00)
[2016-03-01] MEDS ORDERED: [UNRECOGNIZED DRUG - OTHER] OU SCH (21:00)
[2016-03-01] MEDS ORDERED: DEXTRAN OU SCH (21:00)
[2016-03-01] MEDS ORDERED: HYPROMELLOSE OU SCH (21:00)
[2016-03-01] MEDS: CARVEDILOL 6.25 MG TAB PO SCH (21:11)
[2016-03-01] MEDS: hydrALAZINE 10 MG TAB PO SCH (21:11)
[2016-03-01] MEDS: ISOSORBIDE DINITRATE 10 MG TAB PO SCH (21:12)
[2016-03-01] MEDS: CEFDINIR 300 MG CAP PO SCH (21:12)
[2016-03-01] MEDS: LEVETIRACETAM 250 MG TAB PO SCH (21:12)
[2016-03-01] MEDS: MEMANTINE HCL 10 MG TAB PO SCH (21:12)
[2016-03-01] MEDS: ARTIFICIAL TEARS OPH SOLN 15 ML OU SCH (21:14)
[2016-03-02 04:48] LABS: MPV 9.3 fL (7.4-10.4)
[2016-03-02 04:59] LABS: BLOOD UREA NITROGEN 23 MG/DL (7-17); CALCIUM 8.5 MG/DL (8.4-10.2); CALCULATED OSMOLALITY 265 MOs/Kg (270-290); CHLORIDE 95 mEq/L (98-107); GLUCOSE 81 MG/DL (70-99); SODIUM LEVEL 136 mEq/L (137-146)
[2016-03-02] MEDS: hydrALAZINE 10 MG TAB PO SCH (05:25)
[2016-03-02] MEDS: ISOSORBIDE DINITRATE 10 MG TAB PO SCH (05:25)
[2016-03-02] MEDS ORDERED: PANTOPRAZOLE 40 MG TAB PO SCH (06:00)
[2016-03-02] MEDS ORDERED: MULTIVITS TH W FE OTHER MIN PO SCH (09:00)
[2016-03-02] MEDS ORDERED: SPIRONOLACTONE 25 MG TAB PO SCH (09:00)
[2016-03-02] MEDS ORDERED: DILTIAZEM HCL 120 MG CAPSULE.CR PO SCH (09:00)
[2016-03-02] MEDS ORDERED: LEVOTHYROXINE 50 MCG (0.05 MG) TAB PO SCH (09:00)
[2016-03-02] MEDS: CEFDINIR 300 MG CAP PO SCH (09:03)
[2016-03-02] MEDS: ARTIFICIAL TEARS OPH SOLN 15 ML OU SCH (09:03)
[2016-03-02] MEDS: LEVETIRACETAM 250 MG TAB PO SCH (09:04)
[2016-03-02] MEDS: ASPIRIN (CHEWABLE) 81 MG TAB PO SCH (09:04)
[2016-03-02] MEDS: FUROSEMIDE 40 MG TAB PO SCH (09:04)
[2016-03-02] MEDS: MEMANTINE HCL 10 MG TAB PO SCH (09:04)
[2016-03-02] MEDS: CARVEDILOL 6.25 MG TAB PO SCH (09:04)
[2016-03-02] MEDS: PIPERACILLIN AND TAZOBACTAM 4.5 GM in D5W 100 ML IV SCH (09:05)
--- NOTE | 2016-03-02 09:48 | PCM.DCS92 ---
- Final/Secondary Discharge Diagnosis (1) Seizure Acute R56.9 - UNSPECIFIED CONVULSIONS Present on Admission: Yes Comment: Episode most consistent with seizure. She has been awake alert and at baseline cognitive status since admission to the hospital. Head CT was negative. 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 Resolved by the time she was admitted to the hospital. (4) Syncope Acute R55 - SYNCOPE AND COLLAPSE Present on Admission: Yes initial encounter Comment: Unclear whether patient had syncope or a seizure prior to arrival at the hospital. She was orthostatic. Plan: Neuro checks. Seizure precautions. Trial of IVFs. (5) DNR (do not resuscitate) Chronic Z66 - DO NOT RESUSCITATE Present on Admission: Yes Comment: Patient presented with a portable DNR form. Plan: Continue DNR status. Discharge Disposition: [facility] Discharge Condition: Improved Cognitive Discharge Status: Unable to communicate needs (Dementia) Fuctional Discharge Status: Independent Physician Follow up/Referrals: Eloina Perla MD [Primary Care Provider] - One Week New Prescriptions: Levetiracetam [Keppra] 500 mg PO BID #60 tablet Discharge Home Medication List Carvedilol [Coreg] 6.25 mg PO BID 04/07/15 [History Confirmed 03/01/16 Last Taken 02/23/16 09:07] Citalopram Hydrobromide [Citalopram HBr] 20 mg PO DAILY 04/07/15 [History Confirmed 03/01/16 Last Taken 02/23/16 09:07] Dextran 70/Hypromellose/Pf [Artificial Tears Drops (1.0%)] 1 drop OU BID [History Confirmed 03/01/16 Last Taken 02/16/16 22:00] Diltiazem HCl [Diltiazem 24Hr ER] 120 mg PO DAILY 04/07/15 [History Confirmed Last Taken 02/23/16 09:07] Donepezil HCl 10 mg PO HS 04/07/15 [History Confirmed 03/01/16 Last Taken 20:59] Hydralazine HCl 10 mg PO TID 04/07/15 [History Confirmed 03/01/16 Last Taken 03/10 05:51] Isosorbide Dinitrate 10 mg PO TID 04/07/15 [History Confirmed 03/01/16 Last Taken 02/23/16 05:52] Memantine HCl 10 mg PO BID 04/07/15 [History Confirmed 03/01/16 Last Taken 02/22 09:07] Multivits,Th W-Fe,Other Min [Thera-M] 1 tab PO DAILY 04/07/15 [History Confirmed 03/01/16 Last Taken 02/23/16 11:00] Pantoprazole Sodium 40 mg PO DAILY 04/07/15 [History Confirmed 03/01/16 Last Taken 02/23/16 05:52] Spironolactone [Aldactone] 25 mg PO DAILY 04/15/15 [History Confirmed 03/01/16 Last Taken 02/23/16 09:07] Acetaminophen Ex Str Tablet [TYLENOL EXTRA STRENGTH Tablet] 1,000 mg PO Q4H PRN 02/17/16 [History Confirmed 03/01/16 Last Taken Unknown] Benzonatate [Tessalon Perle] 100 mg PO TID PRN 02/17/16 [History Confirmed 03/01 Last Taken 01/30/16] Diphenhydramine [Benadryl] 25 mg PO Q8H PRN 02/17/16 [History Confirmed Last Taken Unknown] Furosemide [Lasix] 40 mg PO BID 02/17/16 [History Confirmed 03/01/16 Last Taken 02/23/16 07:41] Guaifenesin/D-Methorphan Hb [Cough Syrup Dm] 5 ml PO BID PRN 02/17/16 [History Confirmed 03/01/16 Last Taken 02/15/16] Lovastatin 10 mg PO HS 02/17/16 [History Confirmed 03/01/16 Last Taken 02/22/16 21:01] Petrolatum,White [Petroleum Jelly] 1 noreen TOP DAILY PRN 02/17/16 [History Confirmed 03/01/16 Last Taken Unknown] Cefdinir [Omnicef] 300 mg PO BID 2 Days 02/23/16 [Rx Confirmed 03/01/16 Last Taken Unknown] Levothyroxine [Synthroid, Levoxyl] 50 mcg PO DAILY #30 tablet 02/23/16 [Rx Confirmed 03/01/16 Last Taken 02/23/16 09:07] Prednisone [Sterapred Ds] 10 mg PO DIR #21 pack 02/23/16 [Rx Confirmed Last Taken Unknown] Levetiracetam [Keppra] 500 mg PO BID #60 tablet 03/02/16 [Rx Last Taken Unknown] O2 Device: Room Air Diet at Discharge: Heart Healthy Activity: No Restrictions Call Office For: Worsening Symptoms - DC Summary Notes Hospital Course Note:: Discharge summary on patient named JUAN RAMON BETTENCOURT admitted to [facility] on 03/01/16 by Edi Eli MD. Date of discharge is []. Ms Bettencourt is a pleasantly demented 85-year-old white female sent to the emergency room with altered mental status and unresponsive episode. Concern was for syncope versus seizure. In the emergency room she was unresponsive and unable to provide any history. She was admitted to the hospital. Within a few hours episode completely resolved and she was back to her baseline cognition. Per reports this appears to be most likely a seizure. She was on low-dose Keppra and we elected to increase this up to 500 mg twice daily. She has been stable for more than 24 hours with no complaints. She does have an elevated white blood cell count but this is improving and she has been on antibiotics at home. Cultures are negative to date and x-rays including chest x-ray and head CT are both negative. At this point she appears to be at her baseline cognitive and functional status and is stable for discharge back to halfway facility. Total Time: 45 minutes - Physical Exam Vital Signs: Last Vital Signs Temp 98.1 F 03/02/16 07:41 Pulse 64 03/02/16 07:41 Resp 18 03/02/16 07:41 BP 122/65 03/02/16 07:41 Pulse Ox 93 03/02/16 07:41 Oxygen Pulse Oxygen Saturation 93 O2 Device Room Air Oxygen Flow Rate Fraction of Inspired Oxygen ( FIO2) Constitutional: No apparent distress, Alert (Awake), Confused, Well nourished, Well appearing Oriented to: Time, Person, Place - HEENT Head: Normal ( normocephalic) Eye: Normal (PERRL, EOMI, Sclera white) Oropharynx: Normal (Pharynx:Moist without exudate,Gums-no swelling) Tympanic Membrane: Normal ENT EAC: Normal TMJ: Normal Nose: No Symptoms Reported (septum midline) - Respiratory/Cardiovascular Respiratory: Normal - CTA (BBS clear to auscultation without adventitious sounds ) Cardiovascular: Normal (RRR without murmur, gallop or rub) - GI Auscultation: Normal (NABS) Palpation: Normal (Soft,No rebound or guarding, non distended) Tenderness: Non tender Grijalva's Sign: Negative - Musculoskeletal Back: Normal (Non-Tender) Extremities: Normal (Normal tone, Pulses 2+ No cyanosis or edema, FROM) - Integumentary Skin: Normal, Warm, Dry Lymphatics: Normal (no adenopathy) - Neurologic Memory Impaired: Short-term, Long-term Motor Function: Normal Cranial Nerve: Normal Cerebellar: Normal Mood Description: Normal Thought: Coherent Perception: Normal
[2016-03-02 11:47] VITALS: BP 100/59; TEMP 98.3
[2016-03-02 11:55] VITALS: PULSE 63
[2016-03-02] MEDS: NS 1,000 ML IV SCH (11:56)
[2016-03-02] MEDS ORDERED: VITAMINS, MULTIPLE CAP PO SCH (12:00)
== END 2016-03-02 13:37 | DRG 100 ==
LOC: ED 04:47 → PCU 05:42
PROVIDERS: ADMIT Internal Medicine; ATTEND Hospitalist
DX: G40.909 Epilepsy, unspecified, not intractable, without status epilepticus (principal); G93.41 Metabolic encephalopathy; J44.9 Chronic obstructive pulmonary disease, unspecified; I13.0 Hypertensive heart and chronic kidney disease with heart failure and stage 1 through stage 4 chronic kidney disease, or unspecified chronic kidney disease; I50.20 Unspecified systolic (congestive) heart failure; G30.1 Alzheimer's disease with late onset; F02.80 Dementia in other diseases classified elsewhere, unspecified severity, without behavioral disturbance, psychotic disturbance, mood disturbance, and anxiety; R55 Syncope and collapse; D72.829 Elevated white blood cell count, unspecified; Z66 Do not resuscitate; Z79.2 Long term (current) use of antibiotics; Z95.0 Presence of cardiac pacemaker; N18.3 Chronic kidney disease, stage 3 (moderate); K21.9 Gastro-esophageal reflux disease without esophagitis; Z79.52 Long term (current) use of systemic steroids; E78.00 Pure hypercholesterolemia, unspecified; Z79.899 Other long term (current) drug therapy
CPT/HCPCS: 36415; 70450; 71010; 80048; 80053; 81001; 83880; 84484; 85007; 85027; 85610; 85730; 87040; 87086; 93005; 96360; 96372; 97161; 97165; 99285; J1650; J1953; J1956; J2060; J2543; J3490; J7060